=== PATIENT | male | born 1945 | race Caucasian/White ===

== ENCOUNTER 2024-11-27 17:03 | Inpatient (IN) | payer OTHER, MEDICARE ==
[2024-11-27] MEDS: SODIUM CHLORIDE 0.9% 1,000 ML IV ONE ×2 (17:31→18:53)
[2024-11-27 17:32] LABS: Basophils # (A) 0.01 10*3/uL (0.00-0.10); Basophils % (A) 0.1 %; Eosinophils # (A) 0.00 10*3/uL (0.04-0.35); Eosinophils % (A) 0.0 %; HCT 32.9 % (39.6-50.0); HGB 11.3 g/dL (13.0-17.0); Lymphocytes # (A) 0.66 10*3/uL (0.90-5.00); Lymphocytes % (A) 6.1 %; MCH 31.1 pg (27.0-32.0); MCHC 34.3 g/dL (32.0-37.0); MCV 90.6 fL (80.0-97.0); Monocytes # (A) 0.41 10*3/uL (0.20-1.00); Monocytes % (A) 3.8 %; Neutrophils # (A) 9.75 10*3/uL (1.80-7.70); Neutrophils % (A) 89.4 %; Platelet Count 219 10*3/uL (140-440); RBC 3.63 10*6/uL (4.40-5.60); RDW 13.3 % (11.5-14.5); WBC 10.90 10*3/uL (4.50-10.00)
--- NOTE | 2024-11-27 17:32 | ED ---
General Adult HPI - General Chief complaint: Weakness Stated complaint: Weakness Time Seen by Provider: 11/27/24 17:08 Source: patient, EMS, RN notes reviewed, old records reviewed Mode of arrival: EMS Limitations: no limitations - History of Present Illness Initial comments: 79-year-old male presenting with generalized weakness, poor intake. Apparently family had contacted paramedics who transported the patient to the emergency department. He was noted to be in atrial fibrillation without prior history. Patient has not been eating or drinking well and does have a previous history of alcohol use. Patient denies chest pain or abdominal pain. Denies fever. Denies vomiting. - Related Data Allergies Allergy/AdvReac Type Severity Reaction Status Date / Time No Known Allergies Allergy Verified 11/27/24 17:19 Review of Systems ROS Statement: Those systems with pertinent positive or pertinent negative responses have been documented in the HPI. ROS Other: All systems not noted in ROS Statement are negative. Past Medical History Past Medical History: Unable to Obtain History of Any Multi-Drug Resistant Organisms: None Reported Past Surgical History: No Surgical Hx Reported Past Psychological History: No Psychological Hx Reported Smoking Status: Light tobacco smoker Past Alcohol Use History: Occasional Past Drug Use History: None Reported General Exam Limitations: no limitations General appearance: alert, in no apparent distress, cachectic Head exam: Present: atraumatic, normocephalic Eye exam: Present: normal appearance, PERRL ENT exam: Present: mucous membranes dry Neck exam: Present: normal inspection. Absent: tenderness, meningismus Respiratory exam: Present: normal lung sounds bilaterally. Absent: respiratory distress, wheezes Cardiovascular Exam: Present: tachycardia, irregular rhythm GI/Abdominal exam: Present: soft. Absent: distended, tenderness, guarding Extremities exam: Present: normal inspection, normal capillary refill. Absent: calf tenderness Neurological exam: Present: alert, oriented X3, CN II-XII intact Skin exam: Present: warm, dry, intact Course Vital Signs 11/27/24 11/27/24 11/27/24 17:07 17:19 18:49 Temperature 97.6 F Pulse Rate 129 H 109 H Pulse Rate [ 101 H Bilateral Radial] Respiratory 19 20 Rate Blood Pressure 88/54 110/90 O2 Sat by Pulse 98 97 Oximetry Medical Decision Making - Medical Decision Making Was pt. sent in by a medical professional or institution (, PA, OIL WELL FISHING TOOL TECHNICIAN, urgent care, hospital, or skilled nursing...) When possible be specific @ -No Did you speak to anyone other than the patient for history (EMS, parent, family, police, friend...)? What history was obtained from this source @ -No Did you review nursing and triage notes (agree or disagree)? Why? @ -I reviewed and agree with nursing and triage notes Were old charts reviewed (outside hosp., previous admission, EMS record, old EKG, old radiological studies, urgent care reports/EKG's, skilled nursing records)? Report findings @ -No old charts were reviewed Differential Weakness: Hypoglycemia, shock, sepsis, hyponatremia, anemia, infection, GA, ETOH, adverse medicine reaction, overdose, stroke, this is not meant to be an all-inclusive list. EKG interpreted by me (3pts min.). @Atrial fibrillation with a rate of 111, QRS duration 89, QTc [address] segment elevation. X-rays interpreted by me (1pt min.). @ -Chest x-ray negative for acute cardiopulmonary findings CT interpreted by me (1pt min.). @ -None done U/S interpreted by me (1pt. min.). @ -Ultrasound of the kidneys and bladder has been ordered, results pending What testing was considered but not performed or refused? (CT, X-rays, U/S, labs)? Why? @ -None What meds were considered but not given or refused? Why? @ -None Did you discuss the management of the patient with other professionals (professionals i.e. DrKusum, PA, OIL WELL FISHING TOOL TECHNICIAN, lab, RT, psych nurse, neonatal social worker, pulp drier, teacher, transit police officer, therapeutic case manager)? Give summary @ -Dr. Quintero covering for sound physician group will admit, Dr. Diaz covering for nephrology recommending 3 amp of bicarb push followed by a bicarb drip. Was smoking cessation discussed for >3mins.? @ -No Was critical care preformed (if so, how long)? @ -Yes, 35 minutes Were there social determinants of health that impacted care today? How? (Homelessness, low income, unemployed, alcoholism, drug addiction, transportation, low edu. Level, literacy, decrease access to med. care, alf, rehab)? @ -No Was there de-escalation of care discussed even if they declined (Discuss DNR or withdrawal of care, Hospice)? DNR status @ -No What co-morbidities impacted this encounter? (DM, HTN, Smoking, COPD, CAD, Cancer, CVA, ARF, Chemo, Hep., AIDS, mental health diagnosis, sleep apnea, morbid obesity)? @Alcohol abuse Was patient admitted / discharged? Hospital course, mention meds given and route, prescriptions, significant lab abnormalities, going to OR and other pertinent info. @ -[79-year-old male presenting with weakness, poor oral intake over the past 2 weeks, history of alcohol abuse. Patient is cachectic. He is in A-fib with RVR with otherwise normal vitals. He does appear significantly dehydrated. Laboratory testing reveals acute renal failure with a BUN of 267 and a creatinine of 13. His potassium is 5.1. He is acidotic with a nondetectable CO2. I discussed the management with nephrology who recommend 3 bicarb push followed by bicarb drip. Repeat laboratory testing in the morning. Tapia catheter is established in the emergency department. Ultrasound of the kidneys and bladder has been ordered with results pending. Patient has a minimal troponin elevation which I suspect is from renal failure. Undiagnosed new problem with uncertain prognosis? @ -No Drug Therapy requiring intensive monitoring for toxicity (Heparin, Nitro, Insulin, Cardizem)? @ -No Were any procedures done? @ -No Diagnosis/symptom? @Acute renal failure, new onset A-fib] Acute, or Chronic, or Acute on Chronic? @Acute Uncomplicated (without systemic symptoms) or Complicated (systemic symptoms)? @ -Default Side effects of treatment? @ -No Exacerbation, Progression, or Severe Exacerbation? @ -No Poses a threat to life or bodily function? How? (Chest pain, USA, GA, pneumonia, PE, COPD, DKA, ARF, appy, cholecystitis, CVA, Diverticulitis, Homicidal, Suicidal, threat to staff... and all critical care pts) @Yes, renal failure, A-fib, arrhythmia - Lab Data Result diagrams: 11/27/24 17:19 11/27/24 17:19 Lab Results 11/27/24 11/27/24 11/27/24 Range/Units 17:19 17:19 17:19 WBC 10.90 H (4.50-10.00) 10*3/uL RBC 3.63 L (4.40-5.60) 10*6/uL Hgb 11.3 L (13.0-17.0) g/dL Hct 32.9 L (39.6-50.0) % MCV 90.6 (80.0-97.0) fL MCH 31.1 (27.0-32.0) pg MCHC 34.3 (32.0-37.0) g/dL Plt Count 219 (140-440) 10*3/uL MPV 11.6 (9.5-12.2) fL Immature Gran % (Auto) 0.6 % Neutrophils % 89.4 % Lymphocytes % 6.1 % Monocytes % 3.8 % Eosinophils % 0.0 % Basophils % 0.1 % Immature Gran # 0.07 H (0.00-0.04) 10*3/uL Neutrophils # 9.75 H (1.80-7.70) 10*3/uL Lymphocytes # 0.66 L (0.90-5.00) 10*3/uL Monocytes # 0.41 (0.20-1.00) 10*3/uL Eosinophils # 0.00 L (0.04-0.35) 10*3/uL Basophils # 0.01 (0.00-0.10) 10*3/uL PT 11.2 (10.0-12.5) sec INR 1.0 (<1.2) APTT 22.4 (22.0-30.0) sec Sodium 143 (137-145) mmol/L Potassium 5.1 (3.5-5.1) mmol/L Chloride 104 (98-107) mmol/L Carbon Dioxide <5 L* (22-30) mmol/L Anion Gap mmol/L BUN 267 H* (9-20) mg/dL Creatinine 13.25 H* (0.66-1.25) mg/dL Est GFR (CKD-EPI)AfAm 4 (>60 ml/min/1.73 sqM) Est GFR (CKD-EPI)NonAf 3 (>60 ml/min/1.73 sqM) Glucose 210 H (74-99) mg/dL Plasma Lactic Acid Dario (0.7-2.0) mmol/L Calcium 9.1 (8.4-10.2) mg/dL Magnesium 2.6 H (1.6-2.3) mg/dL Total Bilirubin 0.7 (0.2-1.3) mg/dL AST 10 L (17-59) U/L ALT 8 (4-49) U/L Alkaline Phosphatase 64 (38-126) U/L Troponin I (0.000-0.034) ng/mL Total Protein 6.9 (6.3-8.2) g/dL Albumin 4.4 (3.5-5.0) g/dL 11/27/24 11/27/24 Range/Units 17:19 17:19 WBC (4.50-10.00) 10*3/uL RBC (4.40-5.60) 10*6/uL Hgb (13.0-17.0) g/dL Hct (39.6-50.0) % MCV (80.0-97.0) fL MCH (27.0-32.0) pg MCHC (32.0-37.0) g/dL Plt Count (140-440) 10*3/uL MPV (9.5-12.2) fL Immature Gran % (Auto) % Neutrophils % % Lymphocytes % % Monocytes % % Eosinophils % % Basophils % % Immature Gran # (0.00-0.04) 10*3/uL Neutrophils # (1.80-7.70) 10*3/uL Lymphocytes # (0.90-5.00) 10*3/uL Monocytes # (0.20-1.00) 10*3/uL Eosinophils # (0.04-0.35) 10*3/uL Basophils # (0.00-0.10) 10*3/uL PT (10.0-12.5) sec INR (<1.2) APTT (22.0-30.0) sec Sodium (137-145) mmol/L Potassium (3.5-5.1) mmol/L Chloride (98-107) mmol/L Carbon Dioxide (22-30) mmol/L Anion Gap mmol/L BUN (9-20) mg/dL Creatinine (0.66-1.25) mg/dL Est GFR (CKD-EPI)AfAm (>60 ml/min/1.73 sqM) Est GFR (CKD-EPI)NonAf (>60 ml/min/1.73 sqM) Glucose (74-99) mg/dL Plasma Lactic Acid Dario 1.1 (0.7-2.0) mmol/L Calcium (8.4-10.2) mg/dL Magnesium (1.6-2.3) mg/dL Total Bilirubin (0.2-1.3) mg/dL AST (17-59) U/L ALT (4-49) U/L Alkaline Phosphatase (38-126) U/L Troponin I 0.085 H* (0.000-0.034) ng/mL Total Protein (6.3-8.2) g/dL Albumin (3.5-5.0) g/dL Critical Care Time Critical Care Time: Yes Total Critical Care Time: 35 Disposition Clinical Impression: Dehydration, Acute renal failure, A-fib Disposition: ADMITTED IP TO THIS [facility] Condition: Serious Is patient prescribed a controlled substance at d/c from ED?: No Referrals: [facility] [Primary Care Provider] - 1-2 days Time of Disposition: 19:10
[2024-11-27 17:46] LABS: ALT 8 U/L (4-49); AST 10 U/L (17-59); African American GFR (CKD) 4 (>60 ml/min/1.73 sqM); Albumin 4.4 g/dL (3.5-5.0); Alkaline Phosphatase 64 U/L (38-126); Calcium 9.1 mg/dL (8.4-10.2); Chloride 104 mmol/L (98-107); Glucose 210 mg/dL (74-99); Magnesium 2.6 mg/dL (1.6-2.3); Non-African American GFR(CKD) 3 (>60 ml/min/1.73 sqM); Potassium 5.1 mmol/L (3.5-5.1); Sodium 143 mmol/L (137-145); Total Protein 6.9 g/dL (6.3-8.2)
--- NOTE | 2024-11-27 17:48 | XR ---
EXAMINATION TYPE: XR chest 2V DATE OF EXAM: 11/27/2024 5:45 PM COMPARISON: None. CLINICAL INDICATION: Male, 79 years old with history of Weakness: Shortness of breath TECHNIQUE: XR chest 2V views of the chest are obtained. FINDINGS: Scattered senescent parenchymal changes noted. Hyperinflation compatible with COPD. No evidence for infiltrate. No evidence for atelectasis. Heart size is stable. Mediastinal structures are stable and grossly unremarkable. No evidence for hilar prominence. Degenerative changes dorsal spine. IMPRESSION: 1. No evidence for acute pulmonary disease. [facility], , 11/27/2024 5:46 PM
[2024-11-27 17:51] LABS: INR 1.0 (<1.2); Partial Thromboplastin Time 22.4 sec (22.0-30.0); Prothrombin Time 11.2 sec (10.0-12.5)
[2024-11-27 18:24] LABS: Carbon Dioxide <5 mmol/L (22-30)
[2024-11-27 18:26] LABS: Blood Urea Nitrogen 267 mg/dL (9-20)
[2024-11-27] MEDS ORDERED: ACETAMINOPHEN TAB 325 MG TAB PO PRN (19:05)
[2024-11-27] MEDS ORDERED: NALOXONE 0.4 MG/ML 1 ML VIAL IV PRN (19:05)
[2024-11-27 19:15] LABS: Bacteria,Urine Rare /hpf; Bilirubin,Urine Negative (Negative); Blood,Urine Trace (Negative); Color,Urine Yellow; Glucose,Urine (UA) Negative (Negative); Hyaline Casts,Urine 35 /lpf (0-2); Ketones,Urine Trace (Negative); Leukocyte Esterase,Urine Trace (Negative); Mucus,Urine Rare /hpf; Nitrite,Urine Negative (Negative); PH, Urine 5.5 (5.0-8.0); Protein,Urine 2+ (Negative); RBC,Urine 1 /hpf (0-5); Specific Gravity,Urine 1.020 (1.001-1.035); Squamous Epithelial Cell,Urine 10 /hpf (0-4); Urobilinogen,Urine <2.0 mg/dL (<2.0); WBC,Urine 5 /hpf (0-5)
[2024-11-27] MEDS: SODIUM BICARB 8.4% 50 ML SYR (1 MEQ/ML) IV STA (19:28)
[2024-11-27] MEDS: DILTIAZEM 125 MG in DEXTROSE 5% IN WATER 100 ML IV SCH (19:35)
[2024-11-27] MEDS: DILTIAZEM 5 MG/ML 5 ML VIAL IVP STA (19:38)
[2024-11-27] MEDS: DEXTROSE 5% IN WATER 1,000 ML with SODIUM BICARB (1 MEQ/ML) 150 ML IV SCH (19:39)
--- NOTE | 2024-11-27 19:44 | US ---
EXAMINATION TYPE: US kidneys/renal and bladder DATE OF EXAM: 11/27/2024 COMPARISON: NONE CLINICAL INDICATION: Male, 79 years old with history of ARF; ARF TECHNIQUE: Grayscale imaging of the bilateral kidneys and urinary bladder: FINDINGS: EXAM MEASUREMENTS: Right Kidney: 8.5 x 4.3 x 3.9 cm Left Kidney: 9.5 x 4.6 x 3.8 cm Right Kidney: Anechoic area lower pole 1.2 x 1.1 x 1.3 cm. Sweat sign visualized Left Kidney: Sweat sign visualized. Bladder: Cather in place There is no evidence for hydronephrosis at this point in time. No nephrolithiasis is seen. Inferior to right kidney cortical simple cyst. No solid renal masses are identified. Corticomedullary differe ntiation is maintained bilaterally. Decompressed with Tapia catheter in place. IMPRESSION: No hydronephrosis or nephrolithiasis. [facility], , 11/27/2024 7:41 PM
[2024-11-27] MEDS: SODIUM CHLORIDE 0.9% 500 ML 500 ML IV ONE (20:16)
[2024-11-27 20:21] LABS: Glucose,Whole Blood 221 mg/dL (70-110)
[2024-11-27] MEDS: INSULIN LISPRO (HumaLOG) 100 UNIT/ML 10 mL VL SQ SCH (20:49)
--- NOTE | 2024-11-27 21:40 | P.HPIM ---
History of Present Illness H&P Date: 11/27/24 Patient is a 79 y/o M presenting with poor oral intake, generalized weakness, and altered mental status. PMHx is vague d/t patients mentation. Pt brought to ED by paramedics who were contacted by the family. On arrival to the ED he was noted to have AFIB with RVR with no prior history. Pt denies fever, N/V, CP, or abdominal pain. PMHx: Unable to obtain d/t patients mentation Family Hx: Unable to obtain d/t patients mentation HRB: Denies tobacco, stopped drinking "couple months ago" Allergies: None reported Imaging: -ABD/Blatter U/S 11/27 - No hydronephrosis or nephrolithiasis Labs: -CO2 - <5 -BUN 267 -CR 13.25 Vitals: Pulse 115, RR 18, BP 99/48, sat 99% Review of systems: Pertinent positives and negatives as discussed in HPI, a complete review of systems was performed and all other systems are negative. Physical examination: Vital signs reviewed General: non toxic, no distress, appears at stated age, underweight Derm: no unusual rashes/lesions, warm Head: atraumatic, normocephalic, symmetric Eyes: EOMI, anicteric sclera, pupils equal round reactive to light ENT: Nose and ears atraumatic Neck: No cervical lymphadenopathy, trachea midline, supple Mouth: no lip lesion, mucus membranes moist Cardiovascular: irregularly irregular, no murmur, positive dorsalis pedis pulse bilateral, no edema Lungs: CTA bilateral, no rhonchi, no rales, no accessory muscle use Abdominal: soft, nontender to palpation, no guarding Ext: muscle strength 5 out of 5 in all 4 extremities grossly, no gross muscle atrophy Neuro: CN II-XI grossly intact, no gross focal neuro deficits Psych: AOx2 - Thinks it is 1945 Assessment/Plan: Patient is 79 y/o male presenting with Oliguric GRAHAM with possible ATN causing encephalopathy. #Oliguric GRAHAM with possible ATN, likely prerenal d/t BUN/Cr ratio. Meets criteria for emergent dialysis because of severe acidosis and Uremia as indicated by CO2 of 5. Plan: -Nephro consult -Dialysis -Bladder U/S to r/o obstruction. #Acute metabolic encephalopathy 2/2 to uremia and acidosis. Patient indicates no history of bleeding or steroid use but is poor historian Plan: -Should resolve after dialysis normalizes lab values -Aspiration precautions #High AG Metabolic acidosis 2/2 to renal failure as indicated by CO2 of 5. Plan: -Bicarb drip #New onset Afib with RVR, on cardizem drip. Monitor blood pressures, if too low then consider amnio. CHADS VASC score of 2 A-fib likely related to his acute illness Plan: -TSH -TTE -Cardiology consult -Make sure patient gets fluids -[place] Vascor of 2 but will hold off starting anticoagulation for now #Possible UTI d/t abnormal U/A a Plan: -Rocephin ordered - Did not meet sepsis criteria - Pending urine culture #Failure to thrive #Protein Calorie Malnutrition Patient seems very thin and mentally altered. Plan: -Operations Research Manager consult -Case management -Have palliative talk to pt and family in morning -PT Consult -Fall precautions The patient is admitted with an anticipated greater than 2 midnight stay for evaluation of altered mental status, GRAHAM, and new onset afib CODE STATUS: [FULL CODE] Discussed with: Dr Eloy Jacobo Attestation : Patient seen and examined with biomedical engineering technician. Agree with above assessment and plan. This is an 79-year-old male patient . No much of a history was able to be obtained from the patient as patient is altered. Pt brought to ED by paramedics who were contacted by the family. On arrival to the ED he was noted to have AFIB with RVR with no prior history . Labs showing severe kidney injury with severe acidosis. Concern for failure to thrive and severe dehydration . Will definitely need dietitian, case management rn and probably palliative care consult. Nephrology consulted and recommendation for emergent dialysis . Patient will be placed on bicarb drip for now and repeat BMP . Tapia catheter in place to monitor urine output. For the A-fib with RVR, will order echocardiogram , Cardizem drip , TSH and cardiology consult. [place] Vascor of 2 but will defer starting him on anticoagulation for now until dialysis catheter is placed . Time spent : 55 min Past Medical History Past Medical History: Unable to Obtain History of Any Multi-Drug Resistant Organisms: None Reported Past Surgical History: No Surgical Hx Reported Past Psychological History: No Psychological Hx Reported Smoking Status: Light tobacco smoker Past Alcohol Use History: Occasional Past Drug Use History: None Reported Medications and Allergies Home Medications Medication Instructions Recorded Confirmed Type Cholecalciferol (Vitamin D3) 50 mcg PO DAILY 11/27/24 11/27/24 History [Vitamin D3 (50 Mcg = 2000 Iu)] Eucerin Cream 1 applic TOPICAL DAILY 11/27/24 11/27/24 History Folic Acid 1 mg PO DAILY 11/27/24 11/27/24 History Ipratropium/Albuter 20-100Mcg 1 puff INHALATION RT-QID 11/27/24 11/27/24 History [Combivent Respimat 20-100Mcg Inhaler] Latanoprost [Latanoprost 0.005%] 1 drop BOTH EYES HS 11/27/24 11/27/24 History Lisinopril-Hctz 20-25 mg 1 tab PO DAILY 11/27/24 11/27/24 History [Zestoretic 20-25] Loperamide [Imodium] 2 - 4 mg PO QID PRN 11/27/24 11/27/24 History Mometasone Furoate [Asmanex 220 1 puff INHALATION RT-DAILY 11/27/24 11/27/24 History MCG] Naproxen [Naprosyn] 500 mg PO BID 11/27/24 11/27/24 History Thiamine [Vitamin B-1] 100 mg PO DAILY 11/27/24 11/27/24 History amLODIPine [Norvasc] 5 mg PO DAILY 11/27/24 11/27/24 History Allergies Allergy/AdvReac Type Severity Reaction Status Date / Time No Known Allergies Allergy Verified 11/27/24 19:54 Physical Exam Vitals: Vital Signs Temp Pulse Pulse Resp BP Pulse Ox 11/27/24 19:44 115 H 18 99/48 99 11/27/24 19:00 96 16 102/64 97 11/27/24 18:49 109 H 20 110/90 97 11/27/24 17:19 101 H 11/27/24 17:07 97.6 F 129 H 19 88/54 98 Intake and Output 11/27/24 11/27/24 11/27/24 06:59 14:59 22:59 Output Total 13 Balance -13 Output: Urine 13 Other: Weight 70.307 kg Results CBC & Chem 7: 11/27/24 17:19 11/27/24 17:19 Labs: Abnormal Lab Results - Last 24 Hours (Table) 11/27/24 11/27/24 11/27/24 Range/Units 17:19 17:19 17:19 WBC 10.90 H (4.50-10.00) 10*3/uL RBC 3.63 L (4.40-5.60) 10*6/uL Hgb 11.3 L (13.0-17.0) g/dL Hct 32.9 L (39.6-50.0) % Immature Gran # 0.07 H (0.00-0.04) 10*3/uL Neutrophils # 9.75 H (1.80-7.70) 10*3/uL Lymphocytes # 0.66 L (0.90-5.00) 10*3/uL Eosinophils # 0.00 L (0.04-0.35) 10*3/uL Carbon Dioxide <5 L* (22-30) mmol/L BUN 267 H* (9-20) mg/dL Creatinine 13.25 H* (0.66-1.25) mg/dL Glucose 210 H (74-99) mg/dL POC Glucose (mg/dL) (70-110) mg/dL Magnesium 2.6 H (1.6-2.3) mg/dL AST 10 L (17-59) U/L Troponin I 0.085 H* (0.000-0.034) ng/mL Urine Protein (Negative) Urine Ketones (Negative) Urine Blood (Negative) Ur Leukocyte Esterase (Negative) Ur Squamous Epith Cells (0-4) /hpf Urine Bacteria (None) /hpf Hyaline Casts (0-2) /lpf Urine Mucus (None) /hpf 11/27/24 11/27/24 Range/Units 18:55 20:19 WBC (4.50-10.00) 10*3/uL RBC (4.40-5.60) 10*6/uL Hgb (13.0-17.0) g/dL Hct (39.6-50.0) % Immature Gran # (0.00-0.04) 10*3/uL Neutrophils # (1.80-7.70) 10*3/uL Lymphocytes # (0.90-5.00) 10*3/uL Eosinophils # (0.04-0.35) 10*3/uL Carbon Dioxide (22-30) mmol/L BUN (9-20) mg/dL Creatinine (0.66-1.25) mg/dL Glucose (74-99) mg/dL POC Glucose (mg/dL) 221 H (70-110) mg/dL Magnesium (1.6-2.3) mg/dL AST (17-59) U/L Troponin I (0.000-0.034) ng/mL Urine Protein 2+ H (Negative) Urine Ketones Trace H (Negative) Urine Blood Trace H (Negative) Ur Leukocyte Esterase Trace H (Negative) Ur Squamous Epith Cells 10 H (0-4) /hpf Urine Bacteria Rare H (None) /hpf Hyaline Casts 35 H (0-2) /lpf Urine Mucus Rare H (None) /hpf
[2024-11-27 22:00] LABS: T4, Free (Free Thyroxine) 1.62 ng/dL (0.78-2.19)
[2024-11-27 23:34] LABS: Glucose,Whole Blood 213 mg/dL (70-110)
[2024-11-27] MEDS: HEPARIN SODIUM,PORCINE 5,000 UNIT/ML 1 ML VIAL SQ SCH (23:35)
[2024-11-28 00:06] LABS: African American GFR (CKD) 4 (>60 ml/min/1.73 sqM); Anion Gap 32 mmol/L; Calcium 8.1 mg/dL (8.4-10.2); Chloride 105 mmol/L (98-107); Glucose 201 mg/dL (74-99); Non-African American GFR(CKD) 4 (>60 ml/min/1.73 sqM); Potassium 3.6 mmol/L (3.5-5.1); Sodium 146 mmol/L (137-145)
[2024-11-28 00:33] LABS: Carbon Dioxide 9 mmol/L (22-30)
[2024-11-28 01:04] LABS: Blood Urea Nitrogen 249 mg/dL (9-20)
[2024-11-28 06:21] LABS: Glucose,Whole Blood 184 mg/dL (70-110)
[2024-11-28] MEDS ORDERED: HEPARIN SODIUM 1,000 UN/ML (10ML VL) IV PRN (06:55)
[2024-11-28 08:01] LABS: Basophils # (A) 0.01 10*3/uL (0.00-0.10); Basophils % (A) 0.1 %; Eosinophils # (A) 0.01 10*3/uL (0.04-0.35); Eosinophils % (A) 0.1 %; HCT 26.0 % (39.6-50.0); Lymphocytes # (A) 0.51 10*3/uL (0.90-5.00); Lymphocytes % (A) 6.8 %; MCH 31.1 pg (27.0-32.0); MCHC 36.2 g/dL (32.0-37.0); MCV 86.1 fL (80.0-97.0); Monocytes # (A) 0.45 10*3/uL (0.20-1.00); Monocytes % (A) 6.0 %; Neutrophils # (A) 6.48 10*3/uL (1.80-7.70); Neutrophils % (A) 86.6 %; Platelet Count 151 10*3/uL (140-440); RBC 3.02 10*6/uL (4.40-5.60); RDW 12.8 % (11.5-14.5); WBC 7.49 10*3/uL (4.50-10.00)
[2024-11-28 08:08] LABS: INR 1.1 (<1.2); Partial Thromboplastin Time 23.6 sec (22.0-30.0); Prothrombin Time 11.6 sec (10.0-12.5)
[2024-11-28 08:12] LABS: African American GFR (CKD) 5 (>60 ml/min/1.73 sqM); Anion Gap 25 mmol/L; Calcium 7.9 mg/dL (8.4-10.2); Carbon Dioxide 14 mmol/L (22-30); Chloride 107 mmol/L (98-107); Glucose 193 mg/dL (74-99); Magnesium 1.9 mg/dL (1.6-2.3); Non-African American GFR(CKD) 5 (>60 ml/min/1.73 sqM); Sodium 146 mmol/L (137-145)
[2024-11-28 08:14] LABS: HGB 9.4 g/dL (13.0-17.0)
[2024-11-28 08:20] LABS: Blood Urea Nitrogen 227 mg/dL (9-20); Potassium 2.7 mmol/L (3.5-5.1)
[2024-11-28] MEDS: HEPARIN SOD,PORK IN 0.45% NACL 25,000 UNIT in 0.45% NACL 1 250ML.BAG IV SCH (08:41)
[2024-11-28] MEDS: HEPARIN SODIUM 1,000 UN/ML (10ML VL) IV ONE (08:53)
--- NOTE | 2024-11-28 09:32 | CT ---
EXAMINATION TYPE: CT brain wo con DATE OF EXAM: 11/28/2024 7:25 AM COMPARISON: None. CLINICAL INDICATION: Male, 79 years old with history of AMS, ams TECHNIQUE: Brain: Axial CT images of the brain were obtained with coronal and sagittal reformats created and rev iewed. Contrast used: None. Oral contrast used: None. CT DLP: 1093.7 mGycm, Automated exposure control for dose reduction was used. FINDINGS: Brain: Extra-axial spaces: No abnormal extra-axial fluid collections. Ventricular system: Dilatation in proportion to cerebral atrophy. Cerebral parenchyma: No acute intraparenchymal hemorrhage or mass effect. The chaves-white junction is well differentiated. Scattered hypoattenuating areas are seen within the white matter. Cerebellum: Unremarkable. Mass effect: No evidence of midline shift. Intracranial vasculature: Atherosclerotic calcifications of the intracranial vessels. Soft tissues: Normal. Calvarium/osseous structures: No depressed skull fracture. Leftward deviation of the nasal bone with prior injury. Paranasal sinuses and mastoid air cells: Mild scattered paranasal sinus disease. Rightward deviation of the nasal septum. Visualized orbits: Orbital contents are intact. IMPRESSION: 1. No acute intracranial process. 2. Nonspecific white matter changes, likely secondary to chronic small vessel ischemic disease. [facility], , 11/28/2024 9:29 AM
--- NOTE | 2024-11-28 09:34 | P.CRDCN ---
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 He follows with the [facility]. He has a past medical history of hypertension. We have been asked to evaluate the patient for new onset of A-fib with RVR. Patient states that he came into the hospital because he was unable to urinate. He has subsequently had a Tapia catheter placed. He states this problem has been going on for the past few months. Patient states he is not having trouble with eating but has decreased appetite and stopped eating his Meals on Wheels. He denies previous history of kidney problems. He denies any chest pain shortness of breath, palpitations or heart racing. He states that he is a non-smoker. He denies alcohol use. He denies family history of coronary artery disease. He denies any recent bleeding. He denies history of TIA or stroke. He denies history of myocardial infarction. Patient was found to be in A-fib with RVR and started on a Cardizem drip at 5 mg. Heart rate is still uncontrolled in the 130s and remains in atrial fibrillation. Patient is a poor historian. -EKG: Atrial fibrillation with ventricular rate of 111 -Chest x-ray: No acute process. -Ultrasound renal: No hydronephrosis or nephrolithiasis. -Laboratory studies: Initial creatinine 13.2 now 9.4, potassium 2.7, sodium 146, BUN 227. Hemoglobin 9.4. Troponin 0.085. TSH 4.69 and 2.01 with normal free T4. -Home cardiac medications: Amlodipine 5 mg daily, lisinopril hydrochlorothiazide 20-25 mg daily. Review Of Systems: At the time of my exam: CONSTITUTIONAL: Denies fever or chills. HEENT: Denies blurred vision, vision changes, or eye pain. Denies hemoptysis CARDIOVASCULAR: Denies chest pain. Denies orthopnea. Denies PND. Denies pa lpitations RESPIRATORY: Denies shortness of breath. GASTROINTESTINAL: Denies abdominal pain. Denies nausea or vomiting. Decreased appetite. HEMATOLOGIC: Denies bleeding disorders. GENITOURINARY: Denies any blood in urine. SKIN: Denies puritis. Denies rash. Physical examination: Gen: This is 79-year-old male in no acute distress VS: reviewed HEENT: Head is atraumatic, normocephalic. Pupils equal, round. Sclerae is anicteric. NECK: Supple. No JVD. LUNGS: Clear to auscultation. No wheezes or rhonchi. No intercostal retractions. HEART: Regular rate and rhythm. No murmur. ABDOMEN: Soft No tenderness. EXTREMITIES: No pedal edema. No calf tenderness. NEUROLOGICAL: Patient is awake, mental status seems somewhat slow and baseline is not known. Assessment: Acute kidney injury Severe metabolic acidosis secondary to acute kidney injury New onset paroxysmal atrial fibrillation with RVR Elevated troponin most likely secondary to A-fib with RVR and acute kidney injury Hypertension, currently hypotensive Plan: Resume patient's home cardiac medications with the following changes: Hold antihypertensives due to low blood pressure Start patient on heparin drip Continue Cardizem drip Continue telemetry monitoring Obtain CT of the brain prior to starting heparin drip Obtain 2-D echocardiogram and Doppler study to assess cardiac structure and function Further recommendations to follow based upon clinical course Thank you kindly for this consultation. Nurse practitioner note has been reviewed, I agree with documented findings and plan of care. Patient was seen and examined. Past Medical History Past Medical History: Unable to Obtain History of Any Multi-Drug Resistant Organisms: None Reported Past Surgical History: No Surgical Hx Reported Past Psychological History: No Psychological Hx Reported Smoking Status: Light tobacco smoker Past Alcohol Use History: Occasional Past Drug Use History: None Reported Medications and Allergies Home Medications Medication Instructions Recorded Confirmed Type Cholecalciferol (Vitamin D3) 50 mcg PO DAILY 11/27/24 11/27/24 History [Vitamin D3 (50 Mcg = 2000 Iu)] Eucerin Cream 1 applic TOPICAL DAILY 11/27/24 11/27/24 History Folic Acid 1 mg PO DAILY 11/27/24 11/27/24 History Ipratropium/Albuter 20-100Mcg 1 puff INHALATION RT-QID 11/27/24 11/27/24 History [Combivent Respimat 20-100Mcg Inhaler] Latanoprost [Latanoprost 0.005%] 1 drop BOTH EYES HS 11/27/24 11/27/24 History Lisinopril-Hctz 20-25 mg 1 tab PO DAILY 11/27/24 11/27/24 History [Zestoretic -] Loperamide [Imodium] 2 - 4 mg PO QID PRN 11/27/24 11/27/24 History Mometasone Furoate [Asmanex 220 1 puff INHALATION RT-DAILY 11/27/24 11/27/24 History MCG] Naproxen [Naprosyn] 500 mg PO BID 11/27/24 11/27/24 History Thiamine [Vitamin B-1] 100 mg PO DAILY 11/27/24 11/27/24 History amLODIPine [Norvasc] 5 mg PO DAILY 11/27/24 11/27/24 History Allergies Allergy/AdvReac Type Severity Reaction Status Date / Time No Known Allergies Allergy Verified 11/27/24 19:54 Physical Exam Vitals: Vital Signs Temp Pulse Pulse Resp BP Pulse Ox 11/28/24 06:33 137 H 18 119/59 100 11/28/24 03:47 130 H 16 93/71 100 11/28/24 01:54 126 H 16 102/71 98 11/27/24 23:17 123 H 16 103/57 99 11/27/24 22:04 138 H 18 102/61 95 11/27/24 19:44 115 H 18 99/48 99 11/27/24 19:00 96 16 102/64 97 11/27/24 18:49 109 H 20 110/90 97 11/27/24 17:19 101 H 11/27/24 17:07 97.6 F 129 H 19 88/54 98 Intake and Output 11/27/24 11/27/24 11/28/24 14:59 22:59 06:59 Output Total 30 670 Balance -30 -670 Output: Urine 30 670 Other: Weight 70.307 kg Results 11/28/24 07:28 11/28/24 07:28 Cardiac Enzymes 11/27/24 11/27/24 Range/Units 17:19 17:19 AST 10 L (17-59) U/L Troponin I 0.085 H* (0.000-0.034) ng/mL Coagulation 11/27/24 Range/Units 17:19 PT 11.2 (10.0-12.5) sec APTT 22.4 (22.0-30.0) sec CBC 11/27/24 Range/Units 17:19 WBC 10.90 H (4.50-10.00) 10*3/uL RBC 3.63 L (4.40-5.60) 10*6/uL Hgb 11.3 L (13.0-17.0) g/dL Hct 32.9 L (39.6-50.0) % Plt Count 219 (140-440) 10*3/uL Comprehensive Metabolic Panel 11/27/24 11/27/24 Range/Units 17:19 23:26 Sodium 143 146 H (137-145) mmol/L Potassium 5.1 3.6 (3.5-5.1) mmol/L Chloride 104 105 (98-107) mmol/L Carbon Dioxide <5 L* 9 L* (22-30) mmol/L BUN 267 H* 249 H* (9-20) mg/dL Creatinine 13.25 H* 11.85 H* (0.66-1.25) mg/dL Glucose 210 H 201 H (74-99) mg/dL Calcium 9.1 8.1 L (8.4-10.2) mg/dL AST 10 L (17-59) U/L ALT 8 (4-49) U/L Alkaline Phosphatase 64 (38-126) U/L Total Protein 6.9 (6.3-8.2) g/dL Albumin 4.4 (3.5-5.0) g/dL Current Medications Generic Name Dose Route Start Last Admin Trade Name Freq PRN Reason Stop Dose Admin Acetaminophen 650 mg 11/27/24 19:05 Acetaminophen Tab 325 Mg Tab PO Q6HR PRN Mild Pain or Fever > 100.5 Heparin Sodium (Porcine) 5,000 unit 11/27/24 22:45 11/27/24 23:35 Heparin Sodium,Porcine 5,000 Unit/Ml 1 Ml Vial SQ 5,000 unit Q12HR SKYLAR Administration Diltiazem HCl 125 mg/ Dextrose 125 mls @ 5 mls/hr 11/27/24 19:00 11/27/24 19:35 /Water IV 5 mg/hr .Q24H SKYLAR 5 mls/hr Administration Protocol 5 MG/HR Sodium Bicarbonate 150 ml/ 1,150 mls @ 150 mls/hr 11/27/24 19:15 11/28/24 03:47 Dextrose/Water IV 150 mls/hr .Q7H40M SKYLAR Administration Ceftriaxone Sodium 1 gm/ 50 mls @ 100 mls/hr 11/27/24 21:00 11/27/24 20:19 Sodium Chloride IVPB 100 mls/hr Q24H SKYLAR Administration Protocol Insulin Human Lispro 0 unit 11/27/24 20:00 11/28/24 06:34 Insulin Lispro (Humalog) 100 Unit/Ml 10 Ml Vl SQ 1 unit Q6HR SKYLAR Administration Protocol Naloxone HCl 0.2 mg 11/27/24 19:05 Naloxone 0.4 Mg/Ml 1 Ml Vial IV Q2M PRN Opioid Reversal Intake and Output 11/27/24 11/27/24 11/28/24 14:59 22:59 06:59 Output Total 30 670 Balance -30 -670 Output: Urine 30 670 Other: Weight 70.307 kg Patient Weight 11/28/24 06:59 Weight 70.307 kg 11/27/24 17:19 11/27/24 23:26
[2024-11-28] MEDS: POTASSIUM CHLORIDE ER 20 MEQ TAB.ER PO STA (09:42)
--- NOTE | 2024-11-28 09:59 | P.NPCON ---
History of Present Illness - Reason for Consult acute renal failure - History of Present Illness Reason for consultation: Acute kidney injury History of present illness: Patient is a 79-year-old male seen in consultation for acute kidney injury. Unknown baseline renal function. Creatinine on admission was 13.25 and is down to 9.4 today. BUN trending down. Patient came to the hospital due to generali zed weakness and poor intake. He was brought to the hospital by the paramedics. Patient is a poor historian. It is noted the patient was not eating or drinking for the last several days. He does have history of alcohol abuse but unclear as to exactly how much he was drinking. He denies vomiting or diarrhea. Patient was noted to be extremely acidotic with an undetectable bicarb on admission. He is currently maintained on bicarb drip and it is improved to 14 today. Tapia catheter was placed and patient is making urine. He is currently on bicarb drip. Potassium is down to 2.7 which is being replaced. I do not see any naproxen in his home medication list as well as lisinopril and hydr ochlorothiazide but again is unclear as to exactly if he was taking these or not. He was noted to be in A-fib with RVR and is currently maintained on Cardizem drip. Vital signs are stable. General: No acute distress. HEENT: Head exam is unremarkable. LUNGS: No audible rhonchi or wheezes. HEART: Irregular rate and rhythm. ABDOMEN: Nontender. EXTREMITITES: No edema. Past Medical History Past Medical History: Unable to Obtain History of Any Multi-Drug Resistant Organisms: None Reported Past Surgical History: No Surgical Hx Reported Past Psychological History: No Psychological Hx Reported Smoking Status: Light tobacco smoker Past Alcohol Use History: Occasional Past Drug Use History: None Reported Medications and Allergies Home Medications Medication Instructions Recorded Confirmed Type Cholecalciferol (Vitamin D3) 50 mcg PO DAILY 11/27/24 11/27/24 History [Vitamin D3 (50 Mcg = 2000 Iu)] Eucerin Cream 1 applic TOPICAL DAILY 11/27/24 11/27/24 History Folic Acid 1 mg PO DAILY 11/27/24 11/27/24 History Ipratropium/Albuter 20-100Mcg 1 puff INHALATION RT-QID 11/27/24 11/27/24 History [Combivent Respimat 20-100Mcg Inhaler] Latanoprost [Latanoprost 0.005%] 1 drop BOTH EYES HS 11/27/24 11/27/24 History Lisinopril-Hctz 20-25 mg 1 tab PO DAILY 11/27/24 11/27/24 History [Zestoretic 20-25] Loperamide [Imodium] 2 - 4 mg PO QID PRN 11/27/24 11/27/24 History Mometasone Furoate [Asmanex 220 1 puff INHALATION RT-DAILY 11/27/24 11/27/24 History MCG] Naproxen [Naprosyn] 500 mg PO BID 11/27/24 11/27/24 History Thiamine [Vitamin B-1] 100 mg PO DAILY 11/27/24 11/27/24 History amLODIPine [Norvasc] 5 mg PO DAILY 11/27/24 11/27/24 History Allergies Allergy/AdvReac Type Severity Reaction Status Date / Time No Known Allergies Allergy Verified 11/27/24 19:54 Physical Exam Vitals: Vital Signs Temp Pulse Pulse Resp BP Pulse Ox 11/28/24 08:41 125 H 100/57 11/28/24 06:33 137 H 18 119/59 100 11/28/24 03:47 130 H 16 93/71 100 11/28/24 01:54 126 H 16 102/71 98 11/27/24 23:17 123 H 16 103/57 99 11/27/24 22:04 138 H 18 102/61 95 11/27/24 19:44 115 H 18 99/48 99 11/27/24 19:00 96 16 102/64 97 11/27/24 18:49 109 H 20 110/90 97 11/27/24 17:19 101 H 11/27/24 17:07 97.6 F 129 H 19 88/54 98 Intake and Output 11/27/24 11/28/24 11/28/24 22:59 06:59 14:59 Output Total 30 217 340 Balance -96 -850 -041 Output: Urine 30 670 340 Other: Weight 70.307 kg Results - Lab Results Most recent lab results Calcium 7.9 mg/dL (8.4-10.2) L 11/28/24 07:28 Magnesium 1.9 mg/dL (1.6-2.3) 11/28/24 07:28 11/28/24 07:28 11/28/24 07:28 Assessment and Plan Plan: Assessment: 1. Acute kidney injury secondary to ATN secondary to severe hypovolemia further worsened with the use of NSAIDs, ALEXANDREA inhibitor and diuretic use. Unknown baseline renal function. Creatinine 13.2 on admission and is 9.4 today. BUN trending down. 2. Hypokalemia from poor intake and intracellular shifting from IV bicarb. 3. Metabolic acidosis secondary to acute kidney injury. Improving with bicarb drip. 4. Mild hypernatremia from lack of oral water intake. 5. A-fib with RVR maintained on Cardizem drip. 6. History of alcohol abuse. Plan: Maintain bicarb drip. Potassium being replaced. Check ethanol level and volatiles screen. Avoid nephrotoxins. Continue to monitor renal function and urine output. No emergent need for renal replacement therapy at this time. Follow-up echocardiogram. Check CK level. Repeat BMP this afternoon. Thank you for the consultation. I will continue to follow the patient with you during his hospital stay.
[2024-11-28 11:22] LABS: Creatine Kinase 386 U/L (55-170)
[2024-11-28] MEDS: DEXTROSE 5% IN WATER 100 ML with AMIODARONE 150 MG IV ONE (12:08)
[2024-11-28] MEDS: POTASSIUM CHLORIDE ER 10 MEQ TAB.ER.PRT PO STA (12:14)
[2024-11-28 12:35] LABS: Glucose,Whole Blood 292 mg/dL (70-110)
[2024-11-28] MEDS: CALCIUM GLUCONATE IN NACL 1 GM in SALINE 1 100ML.BAG IVPB ONE (12:39)
--- NOTE | 2024-11-28 12:45 | CA ---
Transthoracic Echo Report Name: Mike Sykes Age: 79 Gender: M : 1945 Exam Date: 11/28/2024 10:49 Exam Location: [place] [facility] Ht (in): 73 Wt (lb): 155 Ordering Physician: Eloy Jacobo MD Attending/Referring Phys: Calcine Furnace Tender Lyla Carbajal RDCS Procedure CPT: Indications: afib rvr Cardiac Hx: Technical Quality: Fair Contrast 1: Total Dose (mL): Contrast 2: Total Dose (mL): MEASUREMENTS (Male / Female) Normal Values 2D ECHO LV Diastolic Diameter PLAX 4.0 cm 4.2 - 5.9 / 3.9 - 5.3 cm LV Systolic Diameter PLAX 2.2 cm IVS Diastolic Thickness 1.0 cm 0.6 - 1.0 / 0.6 - 0.9 cm LVPW Diastolic Thickness 1.0 cm 0.6 - 1.0 / 0.6 - 0.9 cm LV Relative Wall Thickness 0.5 RV Internal Dim ED PLAX 2.8 cm LVOT Diameter 2.4 cm LA Systolic Diameter LX 3.5 cm 3.0 - 4.0 / 2.7 - 3.8 cm M-MODE LV Diastolic Diameter MM 3.3 cm 4.2 - 5.9 / 3.9 - 5.3 cm LV Systolic Diameter MM 1.5 cm LV Cardiac Index MM Teich 3023.8 cm???/min???m??? IVS Diastolic Thickness MM 1.0 cm 0.6 - 1.0 / 0.6 - 0.9 cm LVPW Diastolic Thickness MM 0.9 cm 0.6 - 1.0 / 0.6 - 0.9 cm LV Relative Wall Thickness MM 0.6 0.24 - 0.42 / 0.22 - 0.42 LV Mass Index MM 49.8 g/m??? 49 - 115 / 43 - 95 g/m??? Aortic Root Diameter MM 3.6 cm AV Cusp Separation MM 1.3 cm DOPPLER AV Peak Velocity 121.5 cm/s AV Peak Gradient 5.9 mmHg FINDINGS Left Ventricle Left ventricular ejection fraction is estimated at 45 %. Left ventricular cavity size normal. Left ventricular wall thickness normal. No obvious regional wall motion abnormalities. Right Ventricle Normal right ventricular size. Unable to estimate the right ventricular systolic pressure. Right Atrium Right atrium not well visualized. Left Atrium Normal left atrial size. No left atrial thrombus or mass present. Mitral Valve Mitral valve thickened. Mild mitral annular calcification. Mild mitral regurgitation. Aortic Valve Trileaflet aortic valve. Aortic valve sclerosis. Tricuspid Valve Structurally normal tricuspid valve. No tricuspid regurgitation. Pulmonic Valve Pulmonic valve not well visualized. No pulmonic regurgitation. Pericardium No pericardial effusion. Aorta Normal size aortic root and proximal ascending aorta. CONCLUSIONS Tachycardia noted during exam Left ventricular ejection fraction 45% Mild mitral regurgitation No tricuspid regurgitation No pericardial effusion Previewed by: Dr. Rahul Sosa DO (Electronically Signed) Final Date: 28 November 2024 12:45
[2024-11-28] MEDS: AMIODARONE 360 MG in DEXTROSE 5% IN WATER 200 ML IV ONE (12:46)
[2024-11-28] MEDS: IPRATROPIUM-ALBUTEROL 3 ML NEB INHALATION SCH (12:47)
[2024-11-28] MEDS ORDERED: LORazepam 1 MG TAB PO PRN ×2 (13:23)
[2024-11-28] MEDS ORDERED: LORazepam 1 MG/0.5 ML VIAL IV PRN (13:23)
[2024-11-28] MEDS: THIAMINE 100 MG/ML 2 ML VIAL IM STA (13:46)
--- NOTE | 2024-11-28 15:56 | P.PN ---
Subjective Progress Note Date: 11/28/24 Able to ask more questions regarding past medical history today. Denies any current fever or pain but is still somewhat confused. Reports that he fell and lost consciousness recently but could not tell me when. Denies any medical problems but reports that he takes medications for blood pressure. Says that he "couldn't drink water" prior to being brought in by EMS. Objective - Vital Signs Vital signs: Vital Signs Temp 97.6 F 11/28/24 13:48 Pulse 123 H 11/28/24 13:48 Resp 18 11/28/24 13:48 BP 94/60 11/28/24 13:48 Pulse Ox 99 11/28/24 13:48 FiO2 Intake & Output 11/27/24 11/28/24 11/28/24 18:59 06:59 18:59 Output Total 700 660 Balance -700 -660 Weight 70.307 kg Output: Urine 700 660 - Exam Physical examination: Vital signs reviewed General: non toxic, no distress, appears at stated age, underweight Derm: no unusual rashes/lesions, warm Head: atraumatic, normocephalic, symmetric Eyes: EOMI, anicteric sclera, pupils equal round reactive to light ENT: Nose and ears atraumatic Neck: No cervical lymphadenopathy, trachea midline, supple Mouth: no lip lesion, mucus membranes moist Cardiovascular: irregularly irregular, no murmur, positive dorsalis pedis pulse bilateral, no edema Lungs: CTA bilateral, no rhonchi, no rales, no accessory muscle use Abdominal: soft, nontender to palpation, no guarding Ext: muscle strength 5 out of 5 in all 4 extremities grossly, no gross muscle atrophy Neuro: CN II-XI grossly intact, no gross focal neuro deficits Psych: AOx2 - Not oriented to time - Labs CBC & Chem 7: 11/28/24 07:28 11/28/24 07:28 Labs: Abnormal Lab Results - Last 24 Hours (Table) 11/27/24 11/27/24 11/27/24 Range/Units 17:19 17:19 17:19 WBC 10.90 H (4.50-10.00) 10*3/uL RBC 3.63 L (4.40-5.60) 10*6/uL Hgb 11.3 L (13.0-17.0) g/dL Hct 32.9 L (39.6-50.0) % Immature Gran # 0.07 H (0.00-0.04) 10*3/uL Neutrophils # 9.75 H (1.80-7.70) 10*3/uL Lymphocytes # 0.66 L (0.90-5.00) 10*3/uL Eosinophils # 0.00 L (0.04-0.35) 10*3/uL Sodium (137-145) mmol/L Potassium (3.5-5.1) mmol/L Carbon Dioxide <5 L* (22-30) mmol/L BUN 267 H* (9-20) mg/dL Creatinine 13.25 H* (0.66-1.25) mg/dL Glucose 210 H (74-99) mg/dL POC Glucose (mg/dL) (70-110) mg/dL Calcium (8.4-10.2) mg/dL Magnesium 2.6 H (1.6-2.3) mg/dL AST 10 L (17-59) U/L Creatine Kinase (55-170) U/L Troponin I 0.085 H* (0.000-0.034) ng/mL TSH (0.465-4.680) mIU/L Urine Protein (Negative) Urine Ketones (Negative) Urine Blood (Negative) Ur Leukocyte Esterase (Negative) Ur Squamous Epith Cells (0-4) /hpf Urine Bacteria (None) /hpf Hyaline Casts (0-2) /lpf Urine Mucus (None) /hpf 11/27/24 11/27/24 11/27/24 Range/Units 17:19 18:55 20:19 WBC (4.50-10.00) 10*3/uL RBC (4.40-5.60) 10*6/uL Hgb (13.0-17.0) g/dL Hct (39.6-50.0) % Immature Gran # (0.00-0.04) 10*3/uL Neutrophils # (1.80-7.70) 10*3/uL Lymphocytes # (0.90-5.00) 10*3/uL Eosinophils # (0.04-0.35) 10*3/uL Sodium (137-145) mmol/L Potassium (3.5-5.1) mmol/L Carbon Dioxide (22-30) mmol/L BUN (9-20) mg/dL Creatinine (0.66-1.25) mg/dL Glucose (74-99) mg/dL POC Glucose (mg/dL) 221 H (70-110) mg/dL Calcium (8.4-10.2) mg/dL Magnesium (1.6-2.3) mg/dL AST (17-59) U/L Creatine Kinase (55-170) U/L Troponin I (0.000-0.034) ng/mL TSH 4.690 H (0.465-4.680) mIU/L Urine Protein 2+ H (Negative) Urine Ketones Trace H (Negative) Urine Blood Trace H (Negative) Ur Leukocyte Esterase Trace H (Negative) Ur Squamous Epith Cells 10 H (0-4) /hpf Urine Bacteria Rare H (None) /hpf Hyaline Casts 35 H (0-2) /lpf Urine Mucus Rare H (None) /hpf 11/27/24 11/27/24 11/28/24 Range/Units 23:26 23:33 06:20 WBC (4.50-10.00) 10*3/uL RBC (4.40-5.60) 10*6/uL Hgb (13.0-17.0) g/dL Hct (39.6-50.0) % Immature Gran # (0.00-0.04) 10*3/uL Neutrophils # (1.80-7.70) 10*3/uL Lymphocytes # (0.90-5.00) 10*3/uL Eosinophils # (0.04-0.35) 10*3/uL Sodium 146 H (137-145) mmol/L Potassium (3.5-5.1) mmol/L Carbon Dioxide 9 L* (22-30) mmol/L BUN 249 H* (9-20) mg/dL Creatinine 11.85 H* (0.66-1.25) mg/dL Glucose 201 H (74-99) mg/dL POC Glucose (mg/dL) 213 H 184 H (70-110) mg/dL Calcium 8.1 L (8.4-10.2) mg/dL Magnesium (1.6-2.3) mg/dL AST (17-59) U/L Creatine Kinase (55-170) U/L Troponin I (0.000-0.034) ng/mL TSH (0.465-4.680) mIU/L Urine Protein (Negative) Urine Ketones (Negative) Urine Blood (Negative) Ur Leukocyte Esterase (Negative) Ur Squamous Epith Cells (0-4) /hpf Urine Bacteria (None) /hpf Hyaline Casts (0-2) /lpf Urine Mucus (None) /hpf 11/28/24 11/28/24 11/28/24 Range/Units 07:28 07:28 10:17 WBC (4.50-10.00) 10*3/uL RBC 3.02 L (4.40-5.60) 10*6/uL Hgb 9.4 L D (13.0-17.0) g/dL Hct 26.0 L (39.6-50.0) % Immature Gran # (0.00-0.04) 10*3/uL Neutrophils # (1.80-7.70) 10*3/uL Lymphocytes # 0.51 L (0.90-5.00) 10*3/uL Eosinophils # 0.01 L (0.04-0.35) 10*3/uL Sodium 146 H (137-145) mmol/L Potassium 2.7 L* (3.5-5.1) mmol/L Carbon Dioxide 14 L (22-30) mmol/L BUN 227 H* (9-20) mg/dL Creatinine 9.44 H* (0.66-1.25) mg/dL Glucose 193 H (74-99) mg/dL POC Glucose (mg/dL) (70-110) mg/dL Calcium 7.9 L (8.4-10.2) mg/dL Magnesium (1.6-2.3) mg/dL AST (17-59) U/L Creatine Kinase 386 H (55-170) U/L Troponin I (0.000-0.034) ng/mL TSH (0.465-4.680) mIU/L Urine Protein (Negative) Urine Ketones (Negative) Urine Blood (Negative) Ur Leukocyte Esterase (Negative) Ur Squamous Epith Cells (0-4) /hpf Urine Bacteria (None) /hpf Hyaline Casts (0-2) /lpf Urine Mucus (None) /hpf 11/28/24 Range/Units 12:34 WBC (4.50-10.00) 10*3/uL RBC (4.40-5.60) 10*6/uL Hgb (13.0-17.0) g/dL Hct (39.6-50.0) % Immature Gran # (0.00-0.04) 10*3/uL Neutrophils # (1.80-7.70) 10*3/uL Lymphocytes # (0.90-5.00) 10*3/uL Eosinophils # (0.04-0.35) 10*3/uL Sodium (137-145) mmol/L Potassium (3.5-5.1) mmol/L Carbon Dioxide (22-30) mmol/L BUN (9-20) mg/dL Creatinine (0.66-1.25) mg/dL Glucose (74-99) mg/dL POC Glucose (mg/dL) 292 H (70-110) mg/dL Calcium (8.4-10.2) mg/dL Magnesium (1.6-2.3) mg/dL AST (17-59) U/L Creatine Kinase (55-170) U/L Troponin I (0.000-0.034) ng/mL TSH (0.465-4.680) mIU/L Urine Protein (Negative) Urine Ketones (Negative) Urine Blood (Negative) Ur Leukocyte Esterase (Negative) Ur Squamous Epith Cells (0-4) /hpf Urine Bacteria (None) /hpf Hyaline Casts (0-2) /lpf Urine Mucus (None) /hpf Assessment and Plan Assessment: Data reviewed today: -WBC: 7.49, Hgb: 9.4, Na: 146, K: 2.7, Bicarb: 14, Anion gap 25 (32 on arrival), Cr: 9.44, BUN: 227, Ca: 7.9 Patient is 79 y/o male presenting with Oliguric GRAHAM with possible ATN and new onset afib with RVR 1. GRAHAM- likely ATN Uremia Anion gap metabolic acidosis metabolic encephalopathy Hypernatremia Hypokalemia Hypocalcemia Alcohol use disorder at risk for withdrawal -Discussed with nephrology, as long as patient is nonoliguric, will continue to monitor labs and assess the need for dialysis -On bicarb drip 150 cc an hour -Prophylactic Rocephin discontinued -replaced potassium and calcium -Serum alcohol <10 -Placed on CIWA protocol -On renal diet -volatiles screen ordered -UDS ordered -Bladder U/S negative for hydronephrosis or nephrolithiasis -Brain CT negative for hemorrhage 2. New onset Afib with RVR CHADS VASC score of 2 TSH 4.7 on arrival but 2.0 on 11/28/2024 -Cardiology consulted -Echo found LVEF of 45% with no wall motion abnormalities -On amiodarone drip - Continue heparin drip, monitor APTT 3. Failure to thrive -Case management and syruper on board -Will consider PT and/or palliative care consult when patient's acute condition improves Hyperglycemia - Sliding scale insulin, monitor for hypoglycemia Disposition: Pending clinical course I have seen and evaluated the patient today. Discussed with the resident and agree with the residents finding and plan as documented in the resident's note. Changes highlighted in blue font.
[2024-11-28 16:12] LABS: African American GFR (CKD) 6 (>60 ml/min/1.73 sqM); Anion Gap 23 mmol/L; Calcium 8.2 mg/dL (8.4-10.2); Carbon Dioxide 21 mmol/L (22-30); Chloride 100 mmol/L (98-107); Glucose 264 mg/dL (74-99); Non-African American GFR(CKD) 5 (>60 ml/min/1.73 sqM); Sodium 144 mmol/L (137-145)
[2024-11-28 16:32] LABS: Potassium 2.6 mmol/L (3.5-5.1)
[2024-11-28 16:34] LABS: Blood Urea Nitrogen 219 mg/dL (9-20)
[2024-11-28] MEDS: SODIUM CHLORIDE 0.9% 1,000 ML IV SCH (17:25)
[2024-11-28] MEDS: POTASSIUM BICARBONATE/CIT AC 20 MEQ TABLET.EFF PO ONE ×2 (17:42)
[2024-11-28] MEDS ORDERED: POTASSIUM CHLORIDE ER 20 MEQ TAB.ER PO SCH (18:00)
[2024-11-28] MEDS: AMIODARONE 450 MG in DEXTROSE 5% IN WATER 250 ML IV SCH (18:32)
[2024-11-28] MEDS: FLUTICASONE 110 MCG INHALER INHALATION SCH (19:21)
[2024-11-28 22:13] LABS: African American GFR (CKD) 8 (>60 ml/min/1.73 sqM); Anion Gap 18 mmol/L; Calcium 7.9 mg/dL (8.4-10.2); Carbon Dioxide 24 mmol/L (22-30); Chloride 102 mmol/L (98-107); Glucose 183 mg/dL (74-99); Non-African American GFR(CKD) 7 (>60 ml/min/1.73 sqM); Sodium 144 mmol/L (137-145)
[2024-11-28 22:37] LABS: Potassium 2.7 mmol/L (3.5-5.1)
[2024-11-28 23:12] LABS: Blood Urea Nitrogen 210 mg/dL (9-20)
[2024-11-29 01:52] LABS: Basophils # (A) 0.00 10*3/uL (0.00-0.10); Basophils % (A) 0.0 %; Eosinophils # (A) 0.00 10*3/uL (0.04-0.35); Eosinophils % (A) 0.0 %; HCT 25.7 % (39.6-50.0); HGB 9.3 g/dL (13.0-17.0); Lymphocytes # (A) 0.58 10*3/uL (0.90-5.00); Lymphocytes % (A) 8.0 %; MCH 30.9 pg (27.0-32.0); MCHC 36.2 g/dL (32.0-37.0); MCV 85.4 fL (80.0-97.0); Monocytes # (A) 0.45 10*3/uL (0.20-1.00); Monocytes % (A) 6.2 %; Neutrophils # (A) 6.15 10*3/uL (1.80-7.70); Neutrophils % (A) 85.2 %; Platelet Count 136 10*3/uL (140-440); RBC 3.01 10*6/uL (4.40-5.60); RDW 12.8 % (11.5-14.5); WBC 7.22 10*3/uL (4.50-10.00)
[2024-11-29 02:03] LABS: INR 1.3 (<1.2); Prothrombin Time 13.6 sec (10.0-12.5)
[2024-11-29 02:32] LABS: African American GFR (CKD) 8 (>60 ml/min/1.73 sqM); Anion Gap 18 mmol/L; Calcium 7.8 mg/dL (8.4-10.2); Carbon Dioxide 25 mmol/L (22-30); Chloride 103 mmol/L (98-107); Glucose 174 mg/dL (74-99); Non-African American GFR(CKD) 7 (>60 ml/min/1.73 sqM); Sodium 146 mmol/L (137-145)
[2024-11-29 03:26] LABS: Potassium 2.7 mmol/L (3.5-5.1)
[2024-11-29 03:29] LABS: Blood Urea Nitrogen 200 mg/dL (9-20)
[2024-11-29 08:07] LABS: African American GFR (CKD) 11 (>60 ml/min/1.73 sqM); Anion Gap 16 mmol/L; Calcium 7.3 mg/dL (8.4-10.2); Carbon Dioxide 23 mmol/L (22-30); Chloride 108 mmol/L (98-107); Glucose 167 mg/dL (74-99); Magnesium 1.5 mg/dL (1.6-2.3); Non-African American GFR(CKD) 9 (>60 ml/min/1.73 sqM); Sodium 147 mmol/L (137-145)
[2024-11-29] MEDS: POTASSIUM CHLORIDE ER 20 MEQ TAB.ER PO STA (08:24)
[2024-11-29 08:37] LABS: Blood Urea Nitrogen 182 mg/dL (9-20); Potassium 2.7 mmol/L (3.5-5.1)
--- NOTE | 2024-11-29 08:58 | P.PN ---
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 He follows with the [facility]. He has a past medical history of hypertension. We have been asked to evaluate the patient for new onset of A-fib with RVR. Patient states that he came into the hospital because he was unable to urinate. He has subsequently had a Tapia catheter placed. He states this problem has been going on for the past few months. Patient states he is not having trouble with eating but has decreased appetite and stopped eating his Meals on Wheels. He denies previous history of kidney problems. He denies any chest pain shortness of breath, palpitations or heart racing. He states that he is a non-smoker. He denies alcohol use. He denies family history of coronary artery disease. He denies any recent bleeding. He denies history of TIA or stroke. He denies history of myocardial infarction. Patient was found to be in A-fib with RVR and started on a Cardizem drip at 5 mg. Heart rate is still uncontrolled in the 130s and remains in atrial fibrillation. Patient is a poor historian. -EKG: Atrial fibrillation with ventricular rate of 111 -Chest x-ray: No acute process. -Ultrasound renal: No hydronephrosis or nephrolithiasis. -Laboratory studies: Initial creatinine 13.2 now 9.4, potassium 2.7, sodium 146, BUN 227. Hemoglobin 9.4. Troponin 0.085. TSH 4.69 and 2.01 with normal free T4. -Home cardiac medications: Amlodipine 5 mg daily, lisinopril hydrochlorothiazide 20-25 mg daily. 11/29/2024 Patient seen and examined in the emergency center waiting for a bed on the cardiac stepdown unit. Patient denies chest pain or chest pressure he denies palpitations or racing heartbeat sensation. He has been maintained on IV heparin. Yesterday attending started patient on IV amiodarone. Patient is off Cardizem drip. Patient denies any bleeding or blood in the stools. He has been refusing potassium because he does not like the taste for which IV potassium will be ordered. Blood pressure 114/57, heart rate 77, pulse ox 99% on 3 L nasal cannula. Renal function is improving. BUN 182 and creatinine 5.29, hemoglobin 9.3, sodium 147, potassium 2.7. CT of the brain showed no acute process. Echocardiogram reveals EF 45%, tachycardic during exam, mild mitral regurgitation, no tricuspid regurgitation, no pericardial effusion. Patient has been started on the CIWA protocol. Physical examination: Gen: This is 79-year-old male in no acute distress VS: reviewed HEENT: Head is atraumatic, normocephalic. Pupils equal, round. Sclerae is anicteric. NECK: Supple. No JVD. LUNGS: Clear to auscultation. No wheezes or rhonchi. No intercostal retractions. HEART: Regular rate and rhythm. No murmur. ABDOMEN: Soft No tenderness. EXTREMITIES: No pedal edema. No calf tenderness. NEUROLOGICAL: Patient is awake, mental status seems somewhat slow and baseline is not known. Assessment: New onset paroxysmal atrial fibrillation with RVR Elevated troponin most likely secondary to A-fib with RVR and acute kidney injury Cardiomyopathy with EF 45%, unknown if ischemic or nonischemic, possibly related to tachycardia Acute kidney injury Severe metabolic acidosis secondary to acute kidney injury Severe hypokalemia Hypernatremia Anemia without active bleeding Hypertension, currently hypotensive but improving Plan: Continue patient's home cardiac medications with the following changes: Hold antihypertensives due to low blood pressure Continue patient on heparin drip Continue amiodarone drip and transition to oral 400 mg twice daily Continue telemetry monitoring Replace potassium. Patient is agreeable to take IV potassium. Further recommendations to follow based upon clinical course Nurse practitioner note has been reviewed, I agree with documented findings and plan of care. Patient was seen and examined. Objective - Vital Signs Vital signs: Vital Signs Temp 98.0 F 11/28/24 23:00 Pulse 107 H 11/28/24 23:00 Resp 18 11/28/24 23:00 BP 110/66 11/28/24 23:00 Pulse Ox 100 11/28/24 18:00 FiO2 Intake & Output 11/28/24 11/28/24 11/29/24 06:59 18:59 06:59 Intake Total 62.434 57.69 Output Total 700 1160 Balance -700 -1097.566 57.69 Intake: Intake, IV Titration 62.434 57.69 Amount Heparin Sod,Pork in 0.45% 62.434 57.69 NaCl 25,000 unit In 0.45 % NaCl 1 250ml.bag @ 12 UNITS/KG/HR 8.437 mls/hr IV .Q24H [facility] Rx#: [id number] Output: Urine 700 1160 - Labs CBC & Chem 7: 11/29/24 01:38 11/29/24 07:17 Labs: Abnormal Lab Results - Last 24 Hours (Table) 11/28/24 11/28/24 11/28/24 Range/Units 07:28 07:28 10:17 RBC 3.02 L (4.40-5.60) 10*6/uL Hgb 9.4 L D (13.0-17.0) g/dL Hct 26.0 L (39.6-50.0) % Plt Count (140-440) 10*3/uL Lymphocytes # 0.51 L (0.90-5.00) 10*3/uL Eosinophils # 0.01 L (0.04-0.35) 10*3/uL PT (10.0-12.5) sec INR (<1.2) APTT (22.0-30.0) sec Sodium 146 H (137-145) mmol/L Potassium 2.7 L* (3.5-5.1) mmol/L Carbon Dioxide 14 L (22-30) mmol/L BUN 227 H* (9-20) mg/dL Creatinine 9.44 H* (0.66-1.25) mg/dL Glucose 193 H (74-99) mg/dL POC Glucose (mg/dL) (70-110) mg/dL Calcium 7.9 L (8.4-10.2) mg/dL Creatine Kinase 386 H (55-170) U/L 11/28/24 11/28/24 11/28/24 Range/Units 12:34 14:47 14:47 RBC (4.40-5.60) 10*6/uL Hgb (13.0-17.0) g/dL Hct (39.6-50.0) % Plt Count (140-440) 10*3/uL Lymphocytes # (0.90-5.00) 10*3/uL Eosinophils # (0.04-0.35) 10*3/uL PT (10.0-12.5) sec INR (<1.2) APTT 99.4 H (22.0-30.0) sec Sodium (137-145) mmol/L Potassium 2.6 L* (3.5-5.1) mmol/L Carbon Dioxide 21 L (22-30) mmol/L BUN 219 H* (9-20) mg/dL Creatinine 8.38 H* (0.66-1.25) mg/dL Glucose 264 H (74-99) mg/dL POC Glucose (mg/dL) 292 H (70-110) mg/dL Calcium 8.2 L (8.4-10.2) mg/dL Creatine Kinase (55-170) U/L 11/28/24 11/28/24 11/29/24 Range/Units 20:49 23:23 01:38 RBC 3.01 L (4.40-5.60) 10*6/uL Hgb 9.3 L (13.0-17.0) g/dL Hct 25.7 L (39.6-50.0) % Plt Count 136 L (140-440) 10*3/uL Lymphocytes # 0.58 L (0.90-5.00) 10*3/uL Eosinophils # 0.00 L (0.04-0.35) 10*3/uL PT (10.0-12.5) sec INR (<1.2) APTT 67.5 H (22.0-30.0) sec Sodium (137-145) mmol/L Potassium 2.7 L* (3.5-5.1) mmol/L Carbon Dioxide (22-30) mmol/L BUN 210 H* (9-20) mg/dL Creatinine 7.19 H* (0.66-1.25) mg/dL Glucose 183 H (74-99) mg/dL POC Glucose (mg/dL) (70-110) mg/dL Calcium 7.9 L (8.4-10.2) mg/dL Creatine Kinase (55-170) U/L 11/29/24 11/29/24 Range/Units 01:38 01:38 RBC (4.40-5.60) 10*6/uL Hgb (13.0-17.0) g/dL Hct (39.6-50.0) % Plt Count (140-440) 10*3/uL Lymphocytes # (0.90-5.00) 10*3/uL Eosinophils # (0.04-0.35) 10*3/uL PT 13.6 H (10.0-12.5) sec INR 1.3 H (<1.2) APTT (22.0-30.0) sec Sodium 146 H (137-145) mmol/L Potassium 2.7 L* (3.5-5.1) mmol/L Carbon Dioxide (22-30) mmol/L BUN 200 H* (9-20) mg/dL Creatinine 6.51 H (0.66-1.25) mg/dL Glucose 174 H (74-99) mg/dL POC Glucose (mg/dL) (70-110) mg/dL Calcium 7.8 L (8.4-10.2) mg/dL Creatine Kinase (55-170) U/L
[2024-11-29] MEDS: POTASSIUM CHLORIDE 10 MEQ in WATER FOR INJECTION 1 100ML.BAG IVPB SCH ×2 (09:05→17:15)
[2024-11-29] MEDS: THIAMINE 100 MG TAB PO SCH (09:15)
[2024-11-29] MEDS: FOLIC ACID 1 MG TAB PO SCH (09:15)
[2024-11-29] MEDS: AMIODARONE 200 MG TAB PO SCH (09:15)
[2024-11-29] MEDS: MULTIVITAMINS, THERA 1 EACH TAB PO SCH (09:15)
--- NOTE | 2024-11-29 09:51 | P.PN ---
Subjective Patient is seen in follow-up for acute kidney injury. Renal function improving. Refusing oral meds. Nonoliguric. Vital signs are stable. General: No acute distress. HEENT: Head exam is unremarkable. LUNGS: No audible rhonchi or wheezes. HEART: Rate and Rhythm are regular. ABDOMEN: Nontender. EXTREMITITES: No edema. Objective - Vital Signs Vital signs: Vital Signs Temp 98.0 F 11/28/24 23:00 Pulse 77 11/29/24 08:45 Resp 20 11/29/24 08:45 BP 114/57 11/29/24 08:45 Pulse Ox 99 11/29/24 08:45 FiO2 Intake & Output 11/28/24 11/29/24 11/29/24 18:59 06:59 18:59 Intake Total 62.434 57.69 Output Total 1160 Balance -1097.566 57.69 Intake: Intake, IV Titration 62.434 57.69 Amount Heparin Sod,Pork in 0.45% 62.434 57.69 NaCl 25,000 unit In 0.45 % NaCl 1 250ml.bag @ 12 UNITS/KG/HR 8.437 mls/hr IV .Q24H [facility] Rx#: [id number] Output: Urine 1160 - Labs CBC & Chem 7: 11/29/24 01:38 11/29/24 07:17 Labs: Abnormal Lab Results - Last 24 Hours (Table) 11/28/24 11/28/24 11/28/24 Range/Units 10:17 12:34 14:47 RBC (4.40-5.60) 10*6/uL Hgb (13.0-17.0) g/dL Hct (39.6-50.0) % Plt Count (140-440) 10*3/uL Lymphocytes # (0.90-5.00) 10*3/uL Eosinophils # (0.04-0.35) 10*3/uL PT (10.0-12.5) sec INR (<1.2) APTT 99.4 H (22.0-30.0) sec Sodium (137-145) mmol/L Potassium (3.5-5.1) mmol/L Chloride (98-107) mmol/L Carbon Dioxide (22-30) mmol/L BUN (9-20) mg/dL Creatinine (0.66-1.25) mg/dL Glucose (74-99) mg/dL POC Glucose (mg/dL) 292 H (70-110) mg/dL Calcium (8.4-10.2) mg/dL Magnesium (1.6-2.3) mg/dL Creatine Kinase 386 H (55-170) U/L 11/28/24 11/28/24 11/28/24 Range/Units 14:47 20:49 23:23 RBC (4.40-5.60) 10*6/uL Hgb (13.0-17.0) g/dL Hct (39.6-50.0) % Plt Count (140-440) 10*3/uL Lymphocytes # (0.90-5.00) 10*3/uL Eosinophils # (0.04-0.35) 10*3/uL PT (10.0-12.5) sec INR (<1.2) APTT 67.5 H (22.0-30.0) sec Sodium (137-145) mmol/L Potassium 2.6 L* 2.7 L* (3.5-5.1) mmol/L Chloride (98-107) mmol/L Carbon Dioxide 21 L (22-30) mmol/L BUN 219 H* 210 H* (9-20) mg/dL Creatinine 8.38 H* 7.19 H* (0.66-1.25) mg/dL Glucose 264 H 183 H (74-99) mg/dL POC Glucose (mg/dL) (70-110) mg/dL Calcium 8.2 L 7.9 L (8.4-10.2) mg/dL Magnesium (1.6-2.3) mg/dL Creatine Kinase (55-170) U/L 11/29/24 11/29/24 11/29/24 Range/Units 01:38 01:38 01:38 RBC 3.01 L (4.40-5.60) 10*6/uL Hgb 9.3 L (13.0-17.0) g/dL Hct 25.7 L (39.6-50.0) % Plt Count 136 L (140-440) 10*3/uL Lymphocytes # 0.58 L (0.90-5.00) 10*3/uL Eosinophils # 0.00 L (0.04-0.35) 10*3/uL PT 13.6 H (10.0-12.5) sec INR 1.3 H (<1.2) APTT (22.0-30.0) sec Sodium 146 H (137-145) mmol/L Potassium 2.7 L* (3.5-5.1) mmol/L Chloride (98-107) mmol/L Carbon Dioxide (22-30) mmol/L BUN 200 H* (9-20) mg/dL Creatinine 6.51 H (0.66-1.25) mg/dL Glucose 174 H (74-99) mg/dL POC Glucose (mg/dL) (70-110) mg/dL Calcium 7.8 L (8.4-10.2) mg/dL Magnesium (1.6-2.3) mg/dL Creatine Kinase (55-170) U/L 11/29/24 11/29/24 Range/Units 07:17 07:17 RBC (4.40-5.60) 10*6/uL Hgb (13.0-17.0) g/dL Hct (39.6-50.0) % Plt Count (140-440) 10*3/uL Lymphocytes # (0.90-5.00) 10*3/uL Eosinophils # (0.04-0.35) 10*3/uL PT (10.0-12.5) sec INR (<1.2) APTT 56.0 H (22.0-30.0) sec Sodium 147 H (137-145) mmol/L Potassium 2.7 L* (3.5-5.1) mmol/L Chloride 108 H (98-107) mmol/L Carbon Dioxide (22-30) mmol/L BUN 182 H* (9-20) mg/dL Creatinine 5.29 H (0.66-1.25) mg/dL Glucose 167 H (74-99) mg/dL POC Glucose (mg/dL) (70-110) mg/dL Calcium 7.3 L (8.4-10.2) mg/dL Magnesium 1.5 L (1.6-2.3) mg/dL Creatine Kinase (55-170) U/L Microbiology - Last 24 Hours (Table) 11/28/24 01:50 Urine Culture - Final Urine,Catheterized Assessment and Plan Plan: Assessment: 1. Acute kidney injury secondary to ATN secondary to severe hypovolemia further worsened with the use of NSAIDs, ALEXANDREA inhibitor and diuretic use. Unknown baseline renal function. Creatinine 13.2 on admission and is 5.29 today. BUN trending down. No hydronephrosis noted on ultrasound. 2. Hypokalemia from poor intake and intracellular shifting from IV bicarb. 3. Metabolic acidosis secondary to acute kidney injury. Status post bicarb drip. Better. 4. Hypernatremia from lack of oral water intake. 5. A-fib with RVR. On oral meds. 6. History of alcohol abuse. 7. Cardiomyopathy with ejection fraction of 45%. Plan: Change fluids to half-normal saline at 150 cc an hour. Potassium being replaced. Patient refusing oral meds. Replace magnesium as well. Ethanol level negative. Avoid nephrotoxins. Continue to monitor renal function and urine output. No emergent need for renal replacement therapy at this time. Repeat BMP this afternoon.
[2024-11-29] MEDS: SODIUM CHLORIDE 0.45% 1,000 ML IV SCH (11:06)
[2024-11-29] MEDS: MAGNESIUM SULFATE-D5W PMX 1 GM in DEXTROSE/WATER 1 100ML.BAG IVPB SCH (11:16)
[2024-11-29 11:23] LABS: Urine Alcohol Negative (Negative); Urine Barbiturate Negative (Negative)
[2024-11-29] MEDS: INSULIN LISPRO (HumaLOG) 100 UNIT/ML 10 mL VL SQ SCH (12:26)
[2024-11-29 15:05] LABS: African American GFR (CKD) 13 (>60 ml/min/1.73 sqM); Anion Gap 18 mmol/L; Calcium 7.1 mg/dL (8.4-10.2); Carbon Dioxide 21 mmol/L (22-30); Chloride 105 mmol/L (98-107); Glucose 153 mg/dL (74-99); Non-African American GFR(CKD) 11 (>60 ml/min/1.73 sqM); Potassium 3.1 mmol/L (3.5-5.1); Sodium 144 mmol/L (137-145)
--- NOTE | 2024-11-29 15:10 | P.PN ---
Subjective Progress Note Date: 11/29/24 Principal diagnosis: Patient reports doing ok today overall. Mentions some discomfort on his back from lying in bed. No other concerns or questions this morning. Objective - Vital Signs Vital signs: Vital Signs Temp 98.0 F 11/28/24 23:00 Pulse 85 11/29/24 14:37 Resp 20 11/29/24 14:37 BP 110/66 11/29/24 14:37 Pulse Ox 98 11/29/24 14:37 FiO2 Intake & Output 11/28/24 11/29/24 11/29/24 18:59 06:59 18:59 Intake Total 62.434 57.69 Output Total 1160 1000 Balance -1097.566 57.69 -1000 Intake: Intake, IV Titration 62.434 57.69 Amount Heparin Sod,Pork in 0.45% 62.434 57.69 NaCl 25,000 unit In 0.45 % NaCl 1 250ml.bag @ 12 UNITS/KG/HR 8.437 mls/hr IV .Q24H [facility] Rx#: [id number] Output: Urine 1160 1000 - Exam Physical examination: Vital signs reviewed General: non toxic, no distress, appears at stated age Derm: no unusual rashes/lesions, warm Head: atraumatic, normocephalic, symmetric Eyes: EOMI, anicteric sclera, pupils equal round reactive to light ENT: Nose and ears atraumatic Neck: No cervical lymphadenopathy, trachea midline, supple Mouth: no lip lesion, mucus membranes moist Cardiovascular: Regular rate and rhythm. no murmur, positive dorsalis pedis pulse bilateral, no edema Lungs: CTA bilateral, no rhonchi, no rales, no accessory muscle use Abdominal: soft, nontender to palpation, no guarding Ext: muscle strength 5 out of 5 in all 4 extremities grossly, no gross muscle atrophy Neuro: CN II-XI grossly intact, no gross focal neuro deficits - Labs CBC & Chem 7: 11/29/24 01:38 11/29/24 14:13 Labs: Abnormal Lab Results - Last 24 Hours (Table) 11/28/24 11/28/24 11/28/24 Range/Units 14:47 14:47 20:49 RBC (4.40-5.60) 10*6/uL Hgb (13.0-17.0) g/dL Hct (39.6-50.0) % Plt Count (140-440) 10*3/uL Lymphocytes # (0.90-5.00) 10*3/uL Eosinophils # (0.04-0.35) 10*3/uL PT (10.0-12.5) sec INR (<1.2) APTT 99.4 H (22.0-30.0) sec Sodium (137-145) mmol/L Potassium 2.6 L* 2.7 L* (3.5-5.1) mmol/L Chloride (98-107) mmol/L Carbon Dioxide 21 L (22-30) mmol/L BUN 219 H* 210 H* (9-20) mg/dL Creatinine 8.38 H* 7.19 H* (0.66-1.25) mg/dL Glucose 264 H 183 H (74-99) mg/dL Calcium 8.2 L 7.9 L (8.4-10.2) mg/dL Magnesium (1.6-2.3) mg/dL 11/28/24 11/29/24 11/29/24 Range/Units 23:23 01:38 01:38 RBC 3.01 L (4.40-5.60) 10*6/uL Hgb 9.3 L (13.0-17.0) g/dL Hct 25.7 L (39.6-50.0) % Plt Count 136 L (140-440) 10*3/uL Lymphocytes # 0.58 L (0.90-5.00) 10*3/uL Eosinophils # 0.00 L (0.04-0.35) 10*3/uL PT 13.6 H (10.0-12.5) sec INR 1.3 H (<1.2) APTT 67.5 H (22.0-30.0) sec Sodium (137-145) mmol/L Potassium (3.5-5.1) mmol/L Chloride (98-107) mmol/L Carbon Dioxide (22-30) mmol/L BUN (9-20) mg/dL Creatinine (0.66-1.25) mg/dL Glucose (74-99) mg/dL Calcium (8.4-10.2) mg/dL Magnesium (1.6-2.3) mg/dL 0711/29/24 11/29/24 Range/Units 01:38 07:17 07:17 RBC (4.40-5.60) 10*6/uL Hgb (13.0-17.0) g/dL Hct (39.6-50.0) % Plt Count (140-440) 10*3/uL Lymphocytes # (0.90-5.00) 10*3/uL Eosinophils # (0.04-0.35) 10*3/uL PT (10.0-12.5) sec INR (<1.2) APTT 56.0 H (22.0-30.0) sec Sodium 146 H 147 H (137-145) mmol/L Potassium 2.7 L* 2.7 L* (3.5-5.1) mmol/L Chloride 108 H (98-107) mmol/L Carbon Dioxide (22-30) mmol/L BUN 200 H* 182 H* (9-20) mg/dL Creatinine 6.51 H 5.29 H (0.66-1.25) mg/dL Glucose 174 H 167 H (74-99) mg/dL Calcium 7.8 L 7.3 L (8.4-10.2) mg/dL Magnesium 1.5 L (1.6-2.3) mg/dL Microbiology - Last 24 Hours (Table) 11/28/24 01:50 Urine Culture - Final Urine,Catheterized Assessment and Plan Assessment: Data reviewed today: -WBC: 7.22, Hgb: 9.3, Na: 147, K: 2.7, Bicarb: 23, Anion gap 16 (32 on arrival), Cr: 5.29, BUN: 182, Ca: 7.3, Mg 1.5 Patient is 79 y/o male presenting with Oliguric GRAHAM with possible ATN and new onset afib with RVR 1. GRAHAM- likely ATN Uremia Anion gap metabolic acidosis metabolic encephalopathy Hypernatremia Hypokalemia hypomagnesemia Hypocalcemia Alcohol use disorder at risk for withdrawal Bladder U/S negative for hydronephrosis or nephrolithiasis Brain CT negative for hemorrhage -Nephrology following, will continue to monitor labs and assess the need for dialysis -Bicarbonate drip discontinued -On 05/29 NS 150cc/hr -Repleting potassium and magnesium -Holding home antihypertensives per cardiology recs -Serum alcohol <10 -On CIWA protocol -On renal diet -volatiles screen ordered -UDS negative 2. New onset Afib with RVR (resolved) TSH 4.7 on arrival but 2.0 on 11/28/2024 -Cardiology following -On telemetry -Echo found LVEF of 45% with no wall motion abnormalities -Amiodarone drip discontinued. Placed on amiodarone 400 mg PO BID -Continue heparin drip, monitor APTT 3. Type 2 NSTEMI likely due to demand ischemia due to RVR versus secondary to GRAHAM #Troponin 386 on 11/28/2024 #EKG negative for STEMI #No documented hx of CAD -Monitor patient for chest pain/SOB 3. Failure to thrive -Case management and registry nurse on board -Will consider PT and/or palliative care consult when patient's acute condition improves Hyperglycemia - Sliding scale insulin, monitor for hypoglycemia Disposition: Pending clinical course I have seen and evaluated the patient today. Discussed with the resident and agree with the residents finding and plan as documented in the resident's note. Changes highlighted in blue font.
[2024-11-29 15:22] LABS: Blood Urea Nitrogen 168 mg/dL (9-20)
[2024-11-29] MEDS: HEPARIN SOD,PORK IN 0.45% NACL 25,000 UNIT in 0.45% NACL 1 250ML.BAG IV SCH (15:41)
[2024-11-29] MEDS ORDERED: POTASSIUM CHLORIDE 20 MEQ in WATER FOR INJECTION 1 100ML.BAG IVPB ONE (16:30)
[2024-11-29 16:37] LABS: Glucose,Whole Blood 148 mg/dL (70-110)
[2024-11-29 20:28] LABS: Glucose,Whole Blood 137 mg/dL (70-110)
[2024-11-30 01:45] LABS: Basophils # (A) 0.00 10*3/uL (0.00-0.10); Basophils % (A) 0.0 %; Eosinophils # (A) 0.01 10*3/uL (0.04-0.35); Eosinophils % (A) 0.2 %; HCT 25.4 % (39.6-50.0); HGB 8.5 g/dL (13.0-17.0); Lymphocytes # (A) 0.53 10*3/uL (0.90-5.00); Lymphocytes % (A) 9.2 %; MCH 30.7 pg (27.0-32.0); MCHC 33.5 g/dL (32.0-37.0); Monocytes # (A) 0.35 10*3/uL (0.20-1.00); Monocytes % (A) 6.1 %; Neutrophils # (A) 4.83 10*3/uL (1.80-7.70); Neutrophils % (A) 83.6 %; Platelet Count 102 10*3/uL (140-440); RBC 2.77 10*6/uL (4.40-5.60); RDW 13.1 % (11.5-14.5); WBC 5.77 10*3/uL (4.50-10.00)
[2024-11-30 02:17] LABS: MCV 91.7 fL (80.0-97.0)
[2024-11-30 05:48] LABS: Glucose,Whole Blood 111 mg/dL (70-110)
[2024-11-30 08:10] LABS: Basophils # (A) 0.00 10*3/uL (0.00-0.10); Basophils % (A) 0.0 %; Eosinophils # (A) 0.01 10*3/uL (0.04-0.35); Eosinophils % (A) 0.2 %; HCT 23.9 % (39.6-50.0); HGB 8.1 g/dL (13.0-17.0); Lymphocytes # (A) 0.63 10*3/uL (0.90-5.00); Lymphocytes % (A) 11.6 %; MCH 31.2 pg (27.0-32.0); MCHC 33.9 g/dL (32.0-37.0); MCV 91.9 fL (80.0-97.0); Monocytes # (A) 0.37 10*3/uL (0.20-1.00); Monocytes % (A) 6.8 %; Neutrophils # (A) 4.40 10*3/uL (1.80-7.70); Neutrophils % (A) 80.7 %; RBC 2.60 10*6/uL (4.40-5.60); RDW 13.1 % (11.5-14.5); WBC 5.45 10*3/uL (4.50-10.00)
[2024-11-30 08:35] LABS: African American GFR (CKD) 21 (>60 ml/min/1.73 sqM); Anion Gap 12 mmol/L; Calcium 6.8 mg/dL (8.4-10.2); Carbon Dioxide 20 mmol/L (22-30); Chloride 109 mmol/L (98-107); Glucose 106 mg/dL (74-99); Magnesium 1.5 mg/dL (1.6-2.3); Non-African American GFR(CKD) 18 (>60 ml/min/1.73 sqM); Potassium 2.8 mmol/L (3.5-5.1); Sodium 141 mmol/L (137-145)
[2024-11-30 08:53] LABS: Blood Urea Nitrogen 129 mg/dL (9-20)
[2024-11-30] MEDS: APIXABAN 2.5 MG TABLET PO SCH (09:08)
[2024-11-30 09:26] LABS: Platelet Count 91 10*3/uL (140-440)
--- NOTE | 2024-11-30 10:12 | P.PN ---
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 He follows with the [facility]. He has a past medical history of hypertension. We have been asked to evaluate the patient for new onset of A-fib with RVR. Patient states that he came into the hospital because he was unable to urinate. He has subsequently had a Tapia catheter placed. He states this problem has been going on for the past few months. Patient states he is not having trouble with eating but has decreased appetite and stopped eating his Meals on Wheels. He denies previous history of kidney problems. He denies any chest pain shortness of breath, palpitations or heart racing. He states that he is a non-smoker. He denies alcohol use. He denies family history of coronary artery disease. He denies any recent bleeding. He denies history of TIA or stroke. He denies history of myocardial infarction. Patient was found to be in A-fib with RVR and started on a Cardizem drip at 5 mg. Heart rate is still uncontrolled in the 130s and remains in atrial fibrillation. Patient is a poor historian. -EKG: Atrial fibrillation with ventricular rate of 111 -Chest x-ray: No acute process. -Ultrasound renal: No hydronephrosis or nephrolithiasis. -Laboratory studies: Initial creatinine 13.2 now 9.4, potassium 2.7, sodium 146, BUN 227. Hemoglobin 9.4. Troponin 0.085. TSH 4.69 and 2.01 with normal free T4. -Home cardiac medications: Amlodipine 5 mg daily, lisinopril hydrochlorothiazide 20-25 mg daily. 11/29/2024 Patient seen and examined in the emergency center waiting for a bed on the cardiac stepdown unit. Patient denies chest pain or chest pressure he denies palpitations or racing heartbeat sensation. He has been maintained on IV heparin. Yesterday attending started patient on IV amiodarone. Patient is off Cardizem drip. Patient denies any bleeding or blood in the stools. He has been refusing potassium because he does not like the taste for which IV potassium will be ordered. Blood pressure 114/57, heart rate 77, pulse ox 99% on 3 L nasal cannula. Renal function is improving. BUN 182 and creatinine 5.29, hemoglobin 9.3, sodium 147, potassium 2.7. CT of the brain showed no acute process. Echocardiogram reveals EF 45%, tachycardic during exam, mild mitral regurgitation, no tricuspid regurgitation, no pericardial effusion. Patient has been started on the CIWA protocol. 11/30/2024 Patient seen and examined. He is now on the cardiac stepdown unit. He denies any chest pain no shortness of breath. He is not eating very much. He remains in atrial fibrillation with controlled rate. He is not currently on beta-tana due to hypotension. Yesterday we transition IV amiodarone to oral 400 mg twice daily blood pressure now 113/68, heart rate 90, pulse ox 100% on 3 L nasal cannula. Renal function is improving with BUN 129 and creatinine 3.12. Other blood work includes hemoglobin 8.1, CO2 20, potassium 2.8.. Physical examination: Gen: This is 79-year-old male in no acute distress VS: reviewed HEENT: Head is atraumatic, normocephalic. Pupils equal, round. Sclerae is anicteric. NECK: Supple. No JVD. LUNGS: Clear to auscultation. No wheezes or rhonchi. No intercostal retractions. HEART: Regular rate and rhythm. No murmur. ABDOMEN: Soft No tenderness. EXTREMITIES: No pedal edema. No calf tenderness. NEUROLOGICAL: Patient is awake, mental status seems somewhat slow and baseline is not known. Assessment: New onset paroxysmal atrial fibrillation with RVR Elevated troponin most likely type II NSTEMI secondary to A-fib with RVR and acute kidney injury Cardiomyopathy with EF 45%, unknown if ischemic or nonischemic, possibly related to tachycardia Acute kidney injury Severe metabolic acidosis secondary to acute kidney injury Severe hypokalemia Hypernatremia Anemia without active bleeding Hypertension, currently hypotensive but improving Plan: Continue patient on the following cardiac medications: Amiodarone 400 mg twice daily Discontinue heparin drip and start patient on Eliquis 2.5 mg twice daily, dosing low due to acute renal failure Hold antihypertensives due to low blood pressure Patient is not on beta-tana due to hypotension Continue telemetry monitoring Replace potassium. Patient is agreeable to take IV potassium. Patient is refusing oral potassium. Further recommendations to follow based upon clinical course Nurse practitioner note has been reviewed, I agree with documented findings and plan of care. Patient was seen and examined. Objective - Vital Signs Vital signs: Vital Signs Temp 98.1 F 11/29/24 20:00 Pulse 79 11/30/24 04:00 Resp 16 11/30/24 04:00 BP 125/72 11/30/24 04:00 Pulse Ox 100 11/30/24 04:00 FiO2 Intake & Output 11/29/24 11/30/24 11/30/24 18:59 06:59 18:59 Intake Total 0 540 Output Total 1000 1500 Balance -1000 -960 Weight 70.307 kg 52 kg Intake: Oral 0 540 Output: Urine 1000 1500 Other: Voiding Method Indwelling Catheter Indwelling Catheter # Bowel Movements 2 2 - Labs CBC & Chem 7: 11/30/24 07:36 11/30/24 07:36 Labs: Abnormal Lab Results - Last 24 Hours (Table) 11/29/24 11/29/24 11/29/24 Range/Units 07:17 14:13 16:34 RBC (4.40-5.60) 10*6/uL Hgb (13.0-17.0) g/dL Hct (39.6-50.0) % Plt Count (140-440) 10*3/uL Immature Gran # (0.00-0.04) 10*3/uL Lymphocytes # (0.90-5.00) 10*3/uL Eosinophils # (0.04-0.35) 10*3/uL Sodium 147 H (137-145) mmol/L Potassium 2.7 L* 3.1 L (3.5-5.1) mmol/L Chloride 108 H (98-107) mmol/L Carbon Dioxide 21 L (22-30) mmol/L BUN 182 H* 168 H* (9-20) mg/dL Creatinine 5.29 H 4.69 H (0.66-1.25) mg/dL Glucose 167 H 153 H (74-99) mg/dL POC Glucose (mg/dL) 148 H (70-110) mg/dL Calcium 7.3 L 7.1 L (8.4-10.2) mg/dL Magnesium 1.5 L (1.6-2.3) mg/dL 11/29/24 11/30/24 11/30/24 Range/Units 20:24 00:59 05:46 RBC 2.77 L (4.40-5.60) 10*6/uL Hgb 8.5 L (13.0-17.0) g/dL Hct 25.4 L (39.6-50.0) % Plt Count 102 L (140-440) 10*3/uL Immature Gran # 0.05 H (0.00-0.04) 10*3/uL Lymphocytes # 0.53 L (0.90-5.00) 10*3/uL Eosinophils # 0.01 L (0.04-0.35) 10*3/uL Sodium (137-145) mmol/L Potassium (3.5-5.1) mmol/L Chloride (98-107) mmol/L Carbon Dioxide (22-30) mmol/L BUN (9-20) mg/dL Creatinine (0.66-1.25) mg/dL Glucose (74-99) mg/dL POC Glucose (mg/dL) 137 H 111 H (70-110) mg/dL Calcium (8.4-10.2) mg/dL Magnesium (1.6-2.3) mg/dL Microbiology - Last 24 Hours (Table) 11/28/24 01:50 Urine Culture - Final Urine,Catheterized
--- NOTE | 2024-11-30 10:23 | P.PN ---
Subjective Patient is seen in follow-up for acute kidney injury. Renal function improving. Nonoliguric. Oral intake just fair. Vital signs are stable. General: No acute distress. HEENT: Head exam is unremarkable. LUNGS: No audible rhonchi or wheezes. HEART: Rate and Rhythm are regular. ABDOMEN: Nontender. EXTREMITITES: No edema. Objective - Vital Signs Vital signs: Vital Signs Temp 98.4 F 11/30/24 08:00 Pulse 90 11/30/24 08:00 Resp 18 11/30/24 08:00 BP 113/68 11/30/24 08:00 Pulse Ox 100 11/30/24 08:00 FiO2 Intake & Output 11/29/24 11/30/24 11/30/24 18:59 06:59 18:59 Intake Total 0 540 40.598 Output Total 1000 1500 Balance -1000 -960 40.598 Weight 70.307 kg 52 kg Intake: Intake, IV Titration 40.598 Amount Heparin Sod,Pork in 0.45% 40.598 NaCl 25,000 unit In 0.45 % NaCl 1 250ml.bag @ 12 UNITS/KG/HR 8.437 mls/hr IV .Q24H [facility] Rx#: [id number] Oral 0 540 Output: Urine 1000 1500 Other: Voiding Method Indwelling Catheter Indwelling Catheter # Bowel Movements 2 2 - Labs CBC & Chem 7: 11/30/24 07:36 11/30/24 07:36 Labs: Abnormal Lab Results - Last 24 Hours (Table) 11/29/24 11/29/24 11/29/24 Range/Units 14:13 16:34 20:24 RBC (4.40-5.60) 10*6/uL Hgb (13.0-17.0) g/dL Hct (39.6-50.0) % Plt Count (140-440) 10*3/uL Immature Gran # (0.00-0.04) 10*3/uL Lymphocytes # (0.90-5.00) 10*3/uL Eosinophils # (0.04-0.35) 10*3/uL APTT (22.0-30.0) sec Potassium 3.1 L (3.5-5.1) mmol/L Chloride (98-107) mmol/L Carbon Dioxide 21 L (22-30) mmol/L BUN 168 H* (9-20) mg/dL Creatinine 4.69 H (0.66-1.25) mg/dL Glucose 153 H (74-99) mg/dL POC Glucose (mg/dL) 148 H 137 H (70-110) mg/dL Calcium 7.1 L (8.4-10.2) mg/dL Magnesium (1.6-2.3) mg/dL 11/30/24 11/30/24 11/30/24 Range/Units 00:59 05:46 07:36 RBC 2.77 L (4.40-5.60) 10*6/uL Hgb 8.5 L (13.0-17.0) g/dL Hct 25.4 L (39.6-50.0) % Plt Count 102 L (140-440) 10*3/uL Immature Gran # 0.05 H (0.00-0.04) 10*3/uL Lymphocytes # 0.53 L (0.90-5.00) 10*3/uL Eosinophils # 0.01 L (0.04-0.35) 10*3/uL APTT 37.7 H (22.0-30.0) sec Potassium (3.5-5.1) mmol/L Chloride (98-107) mmol/L Carbon Dioxide (22-30) mmol/L BUN (9-20) mg/dL Creatinine (0.66-1.25) mg/dL Glucose (74-99) mg/dL POC Glucose (mg/dL) 111 H (70-110) mg/dL Calcium (8.4-10.2) mg/dL Magnesium (1.6-2.3) mg/dL 11/30/24 11/30/24 Range/Units 07:36 07:36 RBC 2.60 L (4.40-5.60) 10*6/uL Hgb 8.1 L (13.0-17.0) g/dL Hct 23.9 L (39.6-50.0) % Plt Count (140-440) 10*3/uL Immature Gran # (0.00-0.04) 10*3/uL Lymphocytes # (0.90-5.00) 10*3/uL Eosinophils # (0.04-0.35) 10*3/uL APTT (22.0-30.0) sec Potassium 2.8 L (3.5-5.1) mmol/L Chloride 109 H (98-107) mmol/L Carbon Dioxide 20 L (22-30) mmol/L BUN 129 H* (9-20) mg/dL Creatinine 3.12 H (0.66-1.25) mg/dL Glucose 106 H (74-99) mg/dL POC Glucose (mg/dL) (70-110) mg/dL Calcium 6.8 L (8.4-10.2) mg/dL Magnesium 1.5 L (1.6-2.3) mg/dL Microbiology - Last 24 Hours (Table) 11/28/24 01:50 Urine Culture - Final Urine,Catheterized Assessment and Plan Plan: Assessment: 1. Acute kidney injury secondary to ATN secondary to severe hypovolemia further worsened with the use of NSAIDs, ALEXANDREA inhibitor and diuretic use. Unknown baseline renal function. Creatinine 13.2 on admission and is 3.12 today. BUN trending down. Nonoliguric. No hydronephrosis noted on ultrasound. 2. Hypokalemia from poor intake and intracellular shifting from IV bicarb. 3. Metabolic acidosis secondary to acute kidney injury. Status post bicarb drip. 4. Hypernatremia from lack of oral water intake. Better. 5. A-fib with RVR. On oral meds. 6. History of alcohol abuse. 7. Cardiomyopathy with ejection fraction of 45%. Plan: Maintain half-normal saline. Replace potassium and magnesium. Avoid nephrotoxins. Continue to monitor renal function and urine output.
[2024-11-30 11:17] LABS: Glucose,Whole Blood 101 mg/dL (70-110)
[2024-11-30] MEDS: POTASSIUM CHLORIDE 10 MEQ in WATER FOR INJECTION 1 100ML.BAG IVPB SCH (11:23)
[2024-11-30] MEDS: MAGNESIUM SULFATE-D5W PMX 1 GM in DEXTROSE/WATER 1 100ML.BAG IVPB SCH (11:24)
--- NOTE | 2024-11-30 11:52 | P.PN ---
Subjective Progress Note Date: 11/30/24 Subjective: Patient seen and examined at bedside. No acute events overnight. Been getting out of the bed. Tapia catheter in place. Pertinent positives and negatives as discussed above, a complete review of systems was performed and all other systems are negative. Vitals Signs Reviewed. General: Nontoxic, no distress, chronically ill-appearing, cachectic, Tapia catheter in place Derm: Warm, dry Head: Atraumatic, normocephalic, symmetric Eyes: EOMI, no lid lag, anicteric sclera Mouth: No lip lesion, mucus membranes moist Cardiovascular: S1S2 reg, no murmur Lungs: CTA bilateral, no rhonchi, no rales, no accessory muscle use Abdominal: Soft, nontender to palpation, no guarding, no appreciable organomegaly Ext: No gross muscle atrophy, no edema, no contractures Neuro: CN II-XI grossly intact, no focal neuro deficits Psych: Alert, oriented, appropriate affect Data Reviewed Today: Pertinent Labs: WBC 5.45, hemoglobin 8.1, platelet 91, sodium 141, potassium 2.8, bicarb 20, creatinine 3.12, BUN 129, magnesium 1.5 Imaging: No new imaging Assessment and Plan: Active: Nonoliguric GRAHAM, ATN secondary to hypovolemia and medication use Hypokalemia Hypomagnesemia Metabolic acidosis - Nephrology note reviewed, continue half-normal saline at 150 cc an hour - Another 60 mill equivalents of IV potassium given today, 2 g of IV magnesium sulfate given today - Continue to monitor renal function - Tapia catheter in place for now, will consider discontinuing when patient is more ambulatory New onset paroxysmal atrial fibrillation Type II NSTEMI Cardiomyopathy, unknown if ischemic or nonischemic - Cardiology note reviewed, continue amiodarone 400 twice daily - Started on Eliquis 2.5 twice daily today Normocytic anemia Thrombocytopenia - Likely in the setting of acute illness as well as renal failure - Continue to monitor for any bleeding - Repeat CBC tomorrow Alcohol dependence - Continue to monitor for withdrawal, p.o. Ativan per CIWA - Continue thiamine 100 mg daily Failure to thrive - On oral supplements - Dietitian following - PT consulted Chronic: COPD/asthma, not in exacerbation History of hypertension, holding antihypertensives DVT ppx: Eliquis Code status: Full code Anticipated discharge place: Pending clinical course Anticipated discharge time: Pending clinical course Objective - Vital Signs Vital signs: Vital Signs Temp 98.4 F 11/30/24 08:00 Pulse 90 11/30/24 08:00 Resp 18 11/30/24 08:00 BP 113/68 11/30/24 08:00 Pulse Ox 100 11/30/24 08:00 FiO2 Intake & Output 11/29/24 11/30/24 11/30/24 18:59 06:59 18:59 Intake Total 0 540 40.598 Output Total 1000 1500 Balance -1000 -960 40.598 Weight 70.307 kg 52 kg Intake: Intake, IV Titration 40.598 Amount Heparin Sod,Pork in 0.45% 40.598 NaCl 25,000 unit In 0.45 % NaCl 1 250ml.bag @ 12 UNITS/KG/HR 8.437 mls/hr IV .Q24H [facility] Rx#: [id number] Oral 0 540 Output: Urine 1000 1500 Other: Voiding Method Indwelling Catheter Indwelling Catheter Indwelling Catheter # Bowel Movements 2 2 - Labs CBC & Chem 7: 11/30/24 07:36 11/30/24 07:36 Labs: Abnormal Lab Results - Last 24 Hours (Table) 11/29/24 11/29/24 11/29/24 Range/Units 14:13 16:34 20:24 RBC (4.40-5.60) 10*6/uL Hgb (13.0-17.0) g/dL Hct (39.6-50.0) % Plt Count (140-440) 10*3/uL Immature Gran # (0.00-0.04) 10*3/uL Lymphocytes # (0.90-5.00) 10*3/uL Eosinophils # (0.04-0.35) 10*3/uL APTT (22.0-30.0) sec Potassium 3.1 L (3.5-5.1) mmol/L Chloride (98-107) mmol/L Carbon Dioxide 21 L (22-30) mmol/L BUN 168 H* (9-20) mg/dL Creatinine 4.69 H (0.66-1.25) mg/dL Glucose 153 H (74-99) mg/dL POC Glucose (mg/dL) 148 H 137 H (70-110) mg/dL Calcium 7.1 L (8.4-10.2) mg/dL Magnesium (1.6-2.3) mg/dL 11/30/24 11/30/24 11/30/24 Range/Units 00:59 05:46 07:36 RBC 2.77 L (4.40-5.60) 10*6/uL Hgb 8.5 L (13.0-17.0) g/dL Hct 25.4 L (39.6-50.0) % Plt Count 102 L (140-440) 10*3/uL Immature Gran # 0.05 H (0.00-0.04) 10*3/uL Lymphocytes # 0.53 L (0.90-5.00) 10*3/uL Eosinophils # 0.01 L (0.04-0.35) 10*3/uL APTT 37.7 H (22.0-30.0) sec Potassium (3.5-5.1) mmol/L Chloride (98-107) mmol/L Carbon Dioxide (22-30) mmol/L BUN (9-20) mg/dL Creatinine (0.66-1.25) mg/dL Glucose (74-99) mg/dL POC Glucose (mg/dL) 111 H (70-110) mg/dL Calcium (8.4-10.2) mg/dL Magnesium (1.6-2.3) mg/dL 11/30/24 11/30/24 Range/Units 07:36 07:36 RBC 2.60 L (4.40-5.60) 10*6/uL Hgb 8.1 L (13.0-17.0) g/dL Hct 23.9 L (39.6-50.0) % Plt Count 91 L (140-440) 10*3/uL Immature Gran # (0.00-0.04) 10*3/uL Lymphocytes # 0.63 L (0.90-5.00) 10*3/uL Eosinophils # 0.01 L (0.04-0.35) 10*3/uL APTT (22.0-30.0) sec Potassium 2.8 L (3.5-5.1) mmol/L Chloride 109 H (98-107) mmol/L Carbon Dioxide 20 L (22-30) mmol/L BUN 129 H* (9-20) mg/dL Creatinine 3.12 H (0.66-1.25) mg/dL Glucose 106 H (74-99) mg/dL POC Glucose (mg/dL) (70-110) mg/dL Calcium 6.8 L (8.4-10.2) mg/dL Magnesium 1.5 L (1.6-2.3) mg/dL Microbiology - Last 24 Hours (Table) 11/28/24 01:50 Urine Culture - Final Urine,Catheterized
[2024-11-30 16:22] LABS: Glucose,Whole Blood 126 mg/dL (70-110)
[2024-11-30 20:31] LABS: Glucose,Whole Blood 106 mg/dL (70-110)
[2024-12-01 06:14] LABS: Glucose,Whole Blood 89 mg/dL (70-110)
[2024-12-01 07:28] LABS: Basophils # (A) 0.01 10*3/uL (0.00-0.10); Basophils % (A) 0.2 %; Eosinophils # (A) 0.03 10*3/uL (0.04-0.35); Eosinophils % (A) 0.6 %; HCT 22.9 % (39.6-50.0); HGB 7.6 g/dL (13.0-17.0); Lymphocytes # (A) 0.55 10*3/uL (0.90-5.00); Lymphocytes % (A) 11.1 %; MCH 31.0 pg (27.0-32.0); MCHC 33.2 g/dL (32.0-37.0); MCV 93.5 fL (80.0-97.0); Monocytes # (A) 0.37 10*3/uL (0.20-1.00); Monocytes % (A) 7.5 %; Neutrophils # (A) 3.90 10*3/uL (1.80-7.70); Neutrophils % (A) 78.8 %; RBC 2.45 10*6/uL (4.40-5.60); RDW 12.9 % (11.5-14.5); WBC 4.95 10*3/uL (4.50-10.00)
[2024-12-01 07:52] LABS: Platelet Count 87 10*3/uL (140-440)
[2024-12-01 07:55] LABS: African American GFR (CKD) 30 (>60 ml/min/1.73 sqM); Anion Gap 11 mmol/L; Blood Urea Nitrogen 91 mg/dL (9-20); Calcium 7.0 mg/dL (8.4-10.2); Carbon Dioxide 19 mmol/L (22-30); Chloride 109 mmol/L (98-107); Glucose 87 mg/dL (74-99); Magnesium 1.6 mg/dL (1.6-2.3); Non-African American GFR(CKD) 26 (>60 ml/min/1.73 sqM); Sodium 139 mmol/L (137-145)
[2024-12-01 08:16] LABS: Potassium 2.7 mmol/L (3.5-5.1)
[2024-12-01] MEDS: MAGNESIUM SULFATE-D5W PMX 1 GM in DEXTROSE/WATER 1 100ML.BAG IVPB SCH (08:57)
[2024-12-01] MEDS: POTASSIUM CHLORIDE 10 MEQ in WATER FOR INJECTION 1 100ML.BAG IVPB SCH (08:58)
[2024-12-01] MEDS ORDERED: IPRATROPIUM-ALBUTEROL 3 ML NEB INHALATION PRN (09:02)
--- NOTE | 2024-12-01 11:14 | P.PN ---
Subjective Patient is seen for follow-up for acute kidney injury. Renal function continues to improve. Serum creatinine down to 2.2 from 13.2 on initial admission. Currently maintained on IV fluids. Patient has an indwelling Tapia catheter with 24-hour urine output at 2000 mL. Objective - Vital Signs Vital signs: Vital Signs Temp 98.5 F 11/30/24 20:19 Pulse 68 12/01/24 04:08 Resp 17 12/01/24 04:08 BP 108/59 12/01/24 04:08 Pulse Ox 97 12/01/24 09:01 FiO2 Intake & Output 11/30/24 12/01/24 12/01/24 18:59 06:59 18:59 Intake Total 340.598 118 Output Total 1300 700 Balance -959.402 -700 118 Intake: Intake, IV Titration 40.598 Amount Heparin Sod,Pork in 0.45% 40.598 NaCl 25,000 unit In 0.45 % NaCl 1 250ml.bag @ 12 UNITS/KG/HR 8.437 mls/hr IV .Q24H [facility] Rx#: [id number] Oral 300 118 Output: Urine 1300 700 Other: Voiding Method Indwelling Catheter Indwelling Catheter # Bowel Movements 3 1 - Exam Patient is awake, comfortable, no acute distress Examination of the heart S1 and S2 Examination of the lungs bilateral breath sounds are heard Abdomen is soft nontender Examination lower extremity shows no significant edema [employer] exam grossly intact - Labs CBC & Chem 7: 12/01/24 06:44 12/01/24 06:44 Labs: Abnormal Lab Results - Last 24 Hours (Table) 11/30/24 12/01/24 12/01/24 Range/Units 16:20 06:44 06:44 RBC 2.45 L (4.40-5.60) 10*6/uL Hgb 7.6 L (13.0-17.0) g/dL Hct 22.9 L (39.6-50.0) % Plt Count 87 L (140-440) 10*3/uL Immature Gran # 0.09 H (0.00-0.04) 10*3/uL Lymphocytes # 0.55 L (0.90-5.00) 10*3/uL Eosinophils # 0.03 L (0.04-0.35) 10*3/uL Potassium 2.7 L* (3.5-5.1) mmol/L Chloride 109 H (98-107) mmol/L Carbon Dioxide 19 L (22-30) mmol/L BUN 91 H (9-20) mg/dL Creatinine 2.28 H (0.66-1.25) mg/dL POC Glucose (mg/dL) 126 H (70-110) mg/dL Calcium 7.0 L (8.4-10.2) mg/dL Assessment and Plan Assessment: 1. Acute kidney injury secondary to ATN secondary to severe hypovolemia further worsened with the use of NSAIDs, ALEXANDREA inhibitor and diuretic use. Unknown baseline renal function. Creatinine 13.2 on admission and is 2.2 today. BUN trending down. Nonoliguric. No hydronephrosis noted on ultrasound. 2. Hypokalemia from poor intake and intracellular shifting from IV bicarb. 3. Metabolic acidosis secondary to acute kidney injury. Status post bicarb drip. 4. Hypernatremia from lack of oral water intake. Better. 5. A-fib with RVR. On oral meds. 6. History of alcohol abuse. 7. Cardiomyopathy with ejection fraction of 45%. Plan: Decrease IV fluids Continue to encourage increased oral intake Repeat labs in a.m. Continue to avoid nephrotoxic agents.
--- NOTE | 2024-12-01 11:26 | P.PN ---
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 He follows with the [facility]. He has a past medical history of hypertension. We have been asked to evaluate the patient for new onset of A-fib with RVR. Patient states that he came into the hospital because he was unable to urinate. He has subsequently had a Tapia catheter placed. He states this problem has been going on for the past few months. Patient states he is not having trouble with eating but has decreased appetite and stopped eating his Meals on Wheels. He denies previous history of kidney problems. He denies any chest pain shortness of breath, palpitations or heart racing. He states that he is a non-smoker. He denies alcohol use. He denies family history of coronary artery disease. He denies any recent bleeding. He denies history of TIA or stroke. He denies history of myocardial infarction. Patient was found to be in A-fib with RVR and started on a Cardizem drip at 5 mg. Heart rate is still uncontrolled in the 130s and remains in atrial fibrillation. Patient is a poor historian. -EKG: Atrial fibrillation with ventricular rate of 111 -Chest x-ray: No acute process. -Ultrasound renal: No hydronephrosis or nephrolithiasis. -Laboratory studies: Initial creatinine 13.2 now 9.4, potassium 2.7, sodium 146, BUN 227. Hemoglobin 9.4. Troponin 0.085. TSH 4.69 and 2.01 with normal free T4. -Home cardiac medications: Amlodipine 5 mg daily, lisinopril hydrochlorothiazide 20-25 mg daily. 11/29/2024 Patient seen and examined in the emergency center waiting for a bed on the cardiac stepdown unit. Patient denies chest pain or chest pressure he denies palpitations or racing heartbeat sensation. He has been maintained on IV heparin. Yesterday attending started patient on IV amiodarone. Patient is off Cardizem drip. Patient denies any bleeding or blood in the stools. He has been refusing potassium because he does not like the taste for which IV potassium will be ordered. Blood pressure 114/57, heart rate 77, pulse ox 99% on 3 L nasal cannula. Renal function is improving. BUN 182 and creatinine 5.29, hemoglobin 9.3, sodium 147, potassium 2.7. CT of the brain showed no acute process. Echocardiogram reveals EF 45%, tachycardic during exam, mild mitral regurgitation, no tricuspid regurgitation, no pericardial effusion. Patient has been started on the CIWA protocol. 11/30/2024 Patient seen and examined. He is now on the cardiac stepdown unit. He denies any chest pain no shortness of breath. He is not eating very much. He remains in atrial fibrillation with controlled rate. He is not currently on beta- tana due to hypotension. Yesterday we transition IV amiodarone to oral 400 mg twice daily blood pressure now 113/68, heart rate 90, pulse ox 100% on 3 L nasal cannula. Renal function is improving with BUN 129 and creatinine 3.12. Other blood work includes hemoglobin 8.1, CO2 20, potassium 2.8.. 12/01/2024 Seen and examined at bedside this a.m. Saturating well on room air blood pressure 110/63, heart rate 84 sinus rhythm on telemetry. Appears that he converted to sinus rhythm on 11/30/2024. His potassium is 2.7 and magnesium was 1 .6 today. He is having diarrhea with bowel movements. Hemoglobin has consistently dropped since the time of admission on admission it was 11 today at 7.6. No active source of bleeding. Hemoccult stool was positive however. He is on Eliquis 2.5 for up to coagulation for A-fib Physical examination: Gen: This is 79-year-old male in no acute distress VS: reviewed HEENT: Head is atraumatic, normocephalic. Pupils equal, round. Sclerae is anicteric. NECK: Supple. No JVD. LUNGS: Clear to auscultation. No wheezes or rhonchi. No intercostal retractions. HEART: Regular rate and rhythm. No murmur. ABDOMEN: Soft No tenderness. EXTREMITIES: No pedal edema. No calf tenderness. NEUROLOGICAL: Patient is awake, mental status seems somewhat slow and baseline is not known. Assessment: New onset paroxysmal atrial fibrillation with RVR Elevated troponin most likely type II NSTEMI secondary to A-fib with RVR and acute kidney injury Cardiomyopathy with EF 45%, unknown if ischemic or nonischemic, possibly related to tachycardia Acute kidney injury Severe metabolic acidosis secondary to acute kidney injury Severe hypokalemia Hypernatremia Anemia without active bleeding Hypertension, currently hypotensive but improving Plan: Reduce amiodarone to 200 mg daily. From 12/08/2024 reduced to 200 mg daily Add metoprolol succinate 25 mg daily Continue Eliquis 2.5 mg daily Supplement electrolytes. Keep potassium at 4 magnesium at 2. Encourage oral intake Monitor hemoglobin levels, start Protonix 40 p.o. twice daily Obtain iron studies on evaluate for cause for any anemia. Defer to primary team At this time patient is stable from cardiovascular standpoint. Cardiology team will sign off. Please reconsult us in case of any question Objective - Vital Signs Vital signs: Vital Signs Temp 99.3 F 12/01/24 08:55 Pulse 81 12/01/24 08:55 Resp 16 12/01/24 08:55 BP 101/53 12/01/24 08:55 Pulse Ox 97 12/01/24 09:01 FiO2 Intake & Output 11/30/24 12/01/24 12/01/24 18:59 06:59 18:59 Intake Total 340.598 118 Output Total 1300 700 700 Balance -959.402 -700 -582 Intake: Intake, IV Titration 40.598 Amount Heparin Sod,Pork in 0.45% 40.598 NaCl 25,000 unit In 0.45 % NaCl 1 250ml.bag @ 12 UNITS/KG/HR 8.437 mls/hr IV .Q24H [facility] Rx#: [id number] Oral 300 118 Output: Urine 1300 700 700 Other: Voiding Method Indwelling Catheter Indwelling Catheter Indwelling Catheter # Bowel Movements 3 1 1 - Labs CBC & Chem 7: 12/01/24 06:44 12/01/24 06:44 Labs: Abnormal Lab Results - Last 24 Hours (Table) 11/30/24 12/01/24 12/01/24 Range/Units 16:20 06:44 06:44 RBC 2.45 L (4.40-5.60) 10*6/uL Hgb 7.6 L (13.0-17.0) g/dL Hct 22.9 L (39.6-50.0) % Plt Count 87 L (140-440) 10*3/uL Immature Gran # 0.09 H (0.00-0.04) 10*3/uL Lymphocytes # 0.55 L (0.90-5.00) 10*3/uL Eosinophils # 0.03 L (0.04-0.35) 10*3/uL Potassium 2.7 L* (3.5-5.1) mmol/L Chloride 109 H (98-107) mmol/L Carbon Dioxide 19 L (22-30) mmol/L BUN 91 H (9-20) mg/dL Creatinine 2.28 H (0.66-1.25) mg/dL POC Glucose (mg/dL) 126 H (70-110) mg/dL Calcium 7.0 L (8.4-10.2) mg/dL
[2024-12-01 11:27] LABS: Albumin 2.6 g/dL (3.5-5.0)
[2024-12-01 11:34] LABS: Glucose,Whole Blood 119 mg/dL (70-110)
[2024-12-01] MEDS: POTASSIUM CHLORIDE ER 20 MEQ TAB.ER PO STA (12:14)
[2024-12-01] MEDS: METOPROLOL SUCCINATE (ER) 25 MG TAB.ER.24H PO SCH (12:15)
[2024-12-01] MEDS: PANTOPRAZOLE 40 MG TABLET PO SCH (12:15)
--- NOTE | 2024-12-01 13:32 | P.PN ---
Subjective Progress Note Date: 12/01/24 Principal diagnosis: Patient doing well today. Sitting up in chair. Denies any new pain overnight. Is concerned about discharge plan and how he will get home when the time comes. Objective - Vital Signs Vital signs: Vital Signs Temp 99.3 F 12/01/24 08:55 Pulse 81 12/01/24 08:55 Resp 16 12/01/24 08:55 BP 101/53 12/01/24 08:55 Pulse Ox 97 12/01/24 09:01 FiO2 Intake & Output 11/30/24 12/01/24 12/01/24 18:59 06:59 18:59 Intake Total 340.598 118 Output Total 1300 700 700 Balance -959.402 -700 -582 Intake: Intake, IV Titration 40.598 Amount Heparin Sod,Pork in 0.45% 40.598 NaCl 25,000 unit In 0.45 % NaCl 1 250ml.bag @ 12 UNITS/KG/HR 8.437 mls/hr IV .Q24H [facility] Rx#: [id number] Oral 300 118 Output: Urine 1300 700 700 Other: Voiding Method Indwelling Catheter Indwelling Catheter Indwelling Catheter # Bowel Movements 3 1 1 - Exam Vitals Signs Reviewed. General: Nontoxic, no distress, chronically ill-appearing, cachectic, Tapia catheter in place, Sitting up in chair today. Derm: Warm, dry Head: Atraumatic, normocephalic, symmetric Eyes: EOMI, no lid lag, anicteric sclera Mouth: No lip lesion, mucus membranes moist Cardiovascular: S1S2 reg, no murmur Lungs: CTA bilateral, no rhonchi, no rales, no accessory muscle use Abdominal: Soft, nontender to palpation, no guarding, no appreciable organomegaly Ext: No gross muscle atrophy, no edema, no contractures Neuro: CN II-XI grossly intact, no focal neuro deficits Psych: Alert, oriented, appropriate affect - Labs CBC & Chem 7: 12/01/24 06:44 12/01/24 06:44 Labs: Abnormal Lab Results - Last 24 Hours (Table) 11/30/24 12/01/24 12/01/24 Range/Units 16:20 06:44 06:44 RBC 2.45 L (4.40-5.60) 10*6/uL Hgb 7.6 L (13.0-17.0) g/dL Hct 22.9 L (39.6-50.0) % Plt Count 87 L (140-440) 10*3/uL Immature Gran # 0.09 H (0.00-0.04) 10*3/uL Lymphocytes # 0.55 L (0.90-5.00) 10*3/uL Eosinophils # 0.03 L (0.04-0.35) 10*3/uL Potassium 2.7 L* (3.5-5.1) mmol/L Chloride 109 H (98-107) mmol/L Carbon Dioxide 19 L (22-30) mmol/L BUN 91 H (9-20) mg/dL Creatinine 2.28 H (0.66-1.25) mg/dL POC Glucose (mg/dL) 126 H (70-110) mg/dL Calcium 7.0 L (8.4-10.2) mg/dL Albumin (3.5-5.0) g/dL 12/01/24 12/01/24 Range/Units 10:47 11:31 RBC (4.40-5.60) 10*6/uL Hgb (13.0-17.0) g/dL Hct (39.6-50.0) % Plt Count (140-440) 10*3/uL Immature Gran # (0.00-0.04) 10*3/uL Lymphocytes # (0.90-5.00) 10*3/uL Eosinophils # (0.04-0.35) 10*3/uL Potassium (3.5-5.1) mmol/L Chloride (98-107) mmol/L Carbon Dioxide (22-30) mmol/L BUN (9-20) mg/dL Creatinine (0.66-1.25) mg/dL POC Glucose (mg/dL) 119 H (70-110) mg/dL Calcium (8.4-10.2) mg/dL Albumin 2.6 L (3.5-5.0) g/dL Assessment and Plan Assessment: Data Reviewed Today: Pertinent Labs: WBC 4.95, hemoglobin 7.6, platelet 87, sodium 139, potassium 2.7, bicarb 29, creatinine 2.28, BUN 91, magnesium 1.6 Imaging: No new imaging Assessment and Plan: Active: Nonoliguric GRAHAM, ATN secondary to hypovolemia and medication use Hypokalemia Hypomagnesemia (resolved) Metabolic acidosis - Nephrology consulted. Switching to LR 150 cc an hour - Another 10 mill equivalents of IV potassium given today, 1 gm magnesium sulfate - Continue to monitor renal function - Tapia catheter in place for now, will consider discontinuing when patient is m ore ambulatory New onset paroxysmal atrial fibrillation Type II NSTEMI Cardiomyopathy, unknown if ischemic or nonischemic - Cardiology note reviewed, continue amiodarone 400 twice daily - Continue Eliquis 2.5 twice daily Normocytic anemia Thrombocytopenia - Likely in the setting of acute illness as well as renal failure - Iron studies, reticulocyte count ordered - Continue to monitor for any bleeding - Repeat CBC tomorrow Alcohol dependence - Discontinued CIWA po ativan - Continue thiamine 100 mg daily Failure to thrive - On oral supplements - Dietitian following - PT consulted Chronic: COPD/asthma, not in exacerbation History of hypertension, holding antihypertensives DVT ppx: Eliquis Code status: Full code Anticipated discharge place: Pending clinical course Anticipated discharge time: Pending clinical course I have seen and evaluated the patient today. Discussed with the resident and agree with the residents finding and plan as documented in the resident's note. Changes highlighted in blue font.
[2024-12-01 15:36] LABS: Ferritin 1214.0 ng/mL (22.0-322.0); Iron 58.0 UG/DL (65-175); Total Iron Binding Capacity 131.0 UG/DL (228-460)
[2024-12-01 16:36] LABS: Glucose,Whole Blood 134 mg/dL (70-110)
[2024-12-01] MEDS: LACTATED RINGERS 1,000 ML IV SCH (16:41)
[2024-12-01 20:09] LABS: Glucose,Whole Blood 226 mg/dL (70-110)
[2024-12-01] MEDS: AMIODARONE 200 MG TAB PO SCH (21:07)
[2024-12-02 06:12] LABS: Glucose,Whole Blood 124 mg/dL (70-110)
[2024-12-02 08:00] LABS: Basophils # (A) 0.01 10*3/uL (0.00-0.10); Basophils % (A) 0.2 %; Eosinophils # (A) 0.05 10*3/uL (0.04-0.35); Eosinophils % (A) 0.8 %; HCT 25.2 % (39.6-50.0); HGB 8.3 g/dL (13.0-17.0); Lymphocytes # (A) 0.71 10*3/uL (0.90-5.00); Lymphocytes % (A) 11.0 %; MCH 31.8 pg (27.0-32.0); MCHC 32.9 g/dL (32.0-37.0); MCV 96.6 fL (80.0-97.0); Monocytes # (A) 0.51 10*3/uL (0.20-1.00); Monocytes % (A) 7.9 %; Neutrophils # (A) 5.02 10*3/uL (1.80-7.70); Neutrophils % (A) 77.3 %; Platelet Count 104 10*3/uL (140-440); RBC 2.61 10*6/uL (4.40-5.60); RDW 13.0 % (11.5-14.5); WBC 6.48 10*3/uL (4.50-10.00)
[2024-12-02 08:17] LABS: African American GFR (CKD) 37 (>60 ml/min/1.73 sqM); Anion Gap 12 mmol/L; Blood Urea Nitrogen 70 mg/dL (9-20); Calcium 7.8 mg/dL (8.4-10.2); Carbon Dioxide 17 mmol/L (22-30); Chloride 112 mmol/L (98-107); Glucose 109 mg/dL (74-99); Magnesium 1.7 mg/dL (1.6-2.3); Non-African American GFR(CKD) 32 (>60 ml/min/1.73 sqM); Potassium 2.9 mmol/L (3.5-5.1); Sodium 141 mmol/L (137-145)
[2024-12-02 08:24] LABS: INR 1.1 (<1.2); Partial Thromboplastin Time 25.7 sec (22.0-30.0); Prothrombin Time 11.8 sec (10.0-12.5)
[2024-12-02] MEDS: POTASSIUM CHLORIDE 10 MEQ in WATER FOR INJECTION 1 100ML.BAG IVPB SCH (08:38)
[2024-12-02 11:39] LABS: Glucose,Whole Blood 148 mg/dL (70-110)
[2024-12-02] MEDS: MAGNESIUM SULFATE-D5W PMX 1 GM in DEXTROSE/WATER 1 100ML.BAG IVPB SCH (12:45)
[2024-12-02] MEDS: SODIUM BICARBONATE TAB 650 MG TAB PO SCH (12:47)
--- NOTE | 2024-12-02 13:23 | P.PN ---
Subjective Patient is seen for follow-up for acute kidney injury. Renal function continues to improve. Serum creatinine down to 1.9 from 13.2 on initial admission. Currently maintained on IV fluids. Patient has an indwelling Tapia catheter with 24-hour urine output at 1600 mL. Objective - Vital Signs Vital signs: Vital Signs Temp 98.6 F 12/02/24 08:27 Pulse 81 12/02/24 08:27 Resp 14 12/02/24 08:27 BP 104/56 12/02/24 08:27 Pulse Ox 99 12/02/24 08:27 FiO2 Intake & Output 12/01/24 12/02/24 12/02/24 18:59 06:59 18:59 Intake Total 118 Output Total 700 901 Balance -582 -901 Weight 52 kg 62.1 kg Intake: Oral 118 Output: Urine 700 900 Stool 1 Other: Voiding Method Indwelling Catheter Indwelling Catheter Toilet # Voids 2 # Bowel Movements 1 1 - Exam Patient is awake, comfortable, no acute distress Examination of the heart S1 and S2 Examination of the lungs bilateral breath sounds are heard Abdomen is soft nontender Examination lower extremity shows no significant edema HAND WINDER exam grossly intact - Labs CBC & Chem 7: 12/02/24 07:38 12/02/24 07:38 Labs: Abnormal Lab Results - Last 24 Hours (Table) 12/01/24 12/01/24 12/01/24 Range/Units 10:47 10:47 16:34 RBC (4.40-5.60) 10*6/uL Hgb (13.0-17.0) g/dL Hct (39.6-50.0) % Plt Count (140-440) 10*3/uL Immature Gran # (0.00-0.04) 10*3/uL Lymphocytes # (0.90-5.00) 10*3/uL Potassium (3.5-5.1) mmol/L Chloride (98-107) mmol/L Carbon Dioxide (22-30) mmol/L BUN (9-20) mg/dL Creatinine (0.66-1.25) mg/dL Glucose (74-99) mg/dL POC Glucose (mg/dL) 134 H (70-110) mg/dL Calcium (8.4-10.2) mg/dL Iron 58 L (65-175) UG/DL TIBC 131 L (228-460) UG/DL Transferrin 93.5 L 93.4 L (204.0-354.0) mg/dL Ferritin 1214.0 H (22.0-322.0) ng/mL 12/01/24 12/02/24 12/02/24 Range/Units 20:07 06:09 07:38 RBC 2.61 L (4.40-5.60) 10*6/uL Hgb 8.3 L (13.0-17.0) g/dL Hct 25.2 L (39.6-50.0) % Plt Count 104 L (140-440) 10*3/uL Immature Gran # 0.18 H (0.00-0.04) 10*3/uL Lymphocytes # 0.71 L (0.90-5.00) 10*3/uL Potassium (3.5-5.1) mmol/L Chloride (98-107) mmol/L Carbon Dioxide (22-30) mmol/L BUN (9-20) mg/dL Creatinine (0.66-1.25) mg/dL Glucose (74-99) mg/dL POC Glucose (mg/dL) 226 H 124 H (70-110) mg/dL Calcium (8.4-10.2) mg/dL Iron (65-175) UG/DL TIBC (228-460) UG/DL Transferrin (204.0-354.0) mg/dL Ferritin (22.0-322.0) ng/mL 12/02/24 12/02/24 Range/Units 07:38 11:38 RBC (4.40-5.60) 10*6/uL Hgb (13.0-17.0) g/dL Hct (39.6-50.0) % Plt Count (140-440) 10*3/uL Immature Gran # (0.00-0.04) 10*3/uL Lymphocytes # (0.90-5.00) 10*3/uL Potassium 2.9 L (3.5-5.1) mmol/L Chloride 112 H (98-107) mmol/L Carbon Dioxide 17 L (22-30) mmol/L BUN 70 H (9-20) mg/dL Creatinine 1.93 H (0.66-1.25) mg/dL Glucose 109 H (74-99) mg/dL POC Glucose (mg/dL) 148 H (70-110) mg/dL Calcium 7.8 L (8.4-10.2) mg/dL Iron (65-175) UG/DL TIBC (228-460) UG/DL Transferrin (204.0-354.0) mg/dL Ferritin (22.0-322.0) ng/mL Assessment and Plan Assessment: 1. Acute kidney injury secondary to ATN secondary to severe hypovolemia further worsened with the use of NSAIDs, ALEXANDREA inhibitor and diuretic use. Unknown baseline renal function. Creatinine 13.2 on admission and is 1.9 today. Nonoliguric. No hydronephrosis noted on ultrasound. 2. Hypokalemia from poor intake and intracellular shifting from IV bicarb. 3. Metabolic acidosis secondary to acute kidney injury. Status post bicarb drip. 4. Hypernatremia from lack of oral water intake. Better. 5. A-fib with RVR. On oral meds. 6. History of alcohol abuse. 7. Cardiomyopathy with ejection fraction of 45%. Plan: Decrease IV fluids Add oral sodium bicarb Replace potassium May need to switch to IV bicarb if acidosis not improved. Prefer to hold bicarb drip until potassium has been replaced as this will worsen the hypokalemia. Continue to encourage increased oral intake Repeat labs in a.m. Continue to avoid nephrotoxic agents.
--- NOTE | 2024-12-02 14:48 | P.PN ---
Subjective Progress Note Date: 12/02/24 Patient mentions feeling well today. Denies any pain. Able to eat and ambulate to use restroom. Tapia catheter removed. Wants to go home. Objective - Vital Signs Vital signs: Vital Signs Temp 98.6 F 12/02/24 08:27 Pulse 81 12/02/24 08:27 Resp 14 12/02/24 08:27 BP 104/56 12/02/24 08:27 Pulse Ox 99 12/02/24 08:27 FiO2 Intake & Output 12/01/24 12/02/24 12/02/24 18:59 06:59 18:59 Intake Total 118 118 Output Total 700 901 Balance -582 -901 118 Weight 52 kg 62.1 kg Intake: Oral 118 118 Output: Urine 700 900 Stool 1 Other: Voiding Method Indwelling Catheter Indwelling Catheter Toilet # Voids 2 # Bowel Movements 1 1 - Exam Vitals Signs Reviewed. General: Nontoxic, no distress, chronically ill-appearing, cachectic, Tapia catheter removed. Derm: Warm, dry Head: Atraumatic, normocephalic, symmetric Eyes: EOMI, no lid lag, anicteric sclera Mouth: No lip lesion, mucus membranes moist Cardiovascular: S1S2 reg, no murmur Lungs: CTA bilateral, no rhonchi, no rales, no accessory muscle use Abdominal: Soft, nontender to palpation, no guarding, no appreciable organomegaly Ext: No gross muscle atrophy, no edema, no contractures Neuro: CN II-XI grossly intact, no focal neuro deficits Psych: Alert, oriented, appropriate affect - Labs CBC & Chem 7: 12/02/24 07:38 12/02/24 07:38 Labs: Abnormal Lab Results - Last 24 Hours (Table) 12/01/24 12/01/24 12/01/24 Range/Units 10:47 10:47 16:34 RBC (4.40-5.60) 10*6/uL Hgb (13.0-17.0) g/dL Hct (39.6-50.0) % Plt Count (140-440) 10*3/uL Immature Gran # (0.00-0.04) 10*3/uL Lymphocytes # (0.90-5.00) 10*3/uL Potassium (3.5-5.1) mmol/L Chloride (98-107) mmol/L Carbon Dioxide (22-30) mmol/L BUN (9-20) mg/dL Creatinine (0.66-1.25) mg/dL Glucose (74-99) mg/dL POC Glucose (mg/dL) 134 H (70-110) mg/dL Calcium (8.4-10.2) mg/dL Iron 58 L (65-175) UG/DL TIBC 131 L (228-460) UG/DL Transferrin 93.5 L 93.4 L (204.0-354.0) mg/dL Ferritin 1214.0 H (22.0-322.0) ng/mL 12/01/24 12/02/24 12/02/24 Range/Units 20:07 06:09 07:38 RBC 2.61 L (4.40-5.60) 10*6/uL Hgb 8.3 L (13.0-17.0) g/dL Hct 25.2 L (39.6-50.0) % Plt Count 104 L (140-440) 10*3/uL Immature Gran # 0.18 H (0.00-0.04) 10*3/uL Lymphocytes # 0.71 L (0.90-5.00) 10*3/uL Potassium (3.5-5.1) mmol/L Chloride (98-107) mmol/L Carbon Dioxide (22-30) mmol/L BUN (9-20) mg/dL Creatinine (0.66-1.25) mg/dL Glucose (74-99) mg/dL POC Glucose (mg/dL) 226 H 124 H (70-110) mg/dL Calcium (8.4-10.2) mg/dL Iron (65-175) UG/DL TIBC (228-460) UG/DL Transferrin (204.0-354.0) mg/dL Ferritin (22.0-322.0) ng/mL 12/02/24 12/02/24 Range/Units 07:38 11:38 RBC (4.40-5.60) 10*6/uL Hgb (13.0-17.0) g/dL Hct (39.6-50.0) % Plt Count (140-440) 10*3/uL Immature Gran # (0.00-0.04) 10*3/uL Lymphocytes # (0.90-5.00) 10*3/uL Potassium 2.9 L (3.5-5.1) mmol/L Chloride 112 H (98-107) mmol/L Carbon Dioxide 17 L (22-30) mmol/L BUN 70 H (9-20) mg/dL Creatinine 1.93 H (0.66-1.25) mg/dL Glucose 109 H (74-99) mg/dL POC Glucose (mg/dL) 148 H (70-110) mg/dL Calcium 7.8 L (8.4-10.2) mg/dL Iron (65-175) UG/DL TIBC (228-460) UG/DL Transferrin (204.0-354.0) mg/dL Ferritin (22.0-322.0) ng/mL Assessment and Plan Assessment: Data Reviewed Today: Pertinent Labs: WBC 6.48, hemoglobin 8.3, platelet 104, sodium 141, potassium 2.9, bicarb 17, creatinine 1.93, BUN 70, magnesium 1.7, Iron 58, TIBC 131, % Saturation 44.27, Transferrin 93.4, Ferritin 1214.0, reticulocyte count 1.03 Imaging: No new imaging Assessment and Plan: Active: Nonoliguric GRAHAM, ATN secondary to hypovolemia and medication use Hypokalemia Hypomagnesemia (resolved) Metabolic acidosis - Seen by nephrology. Decreasing fluids to 70 mL/hr, added oral sodium bicarb 65 0 mg BID. - Cardiology recommends keeping potassium at 4 and magnesium at 2. - Given 1 gr magnesium sulfate and 60 meq potassium chloride today - Continue to monitor renal function New onset paroxysmal atrial fibrillation Type II NSTEMI Cardiomyopathy, unknown if ischemic or nonischemic - Cardiology note reviewed, Reduced amiodarone dose to 200 twice daily and added metoprolol succinate 25 mg daily - Continue Eliquis 2.5 twice daily Normocytic anemia Thrombocytopenia - Likely in the setting of acute illness as well as renal failure - Continue to monitor for any bleeding - Repeat CBC tomorrow Alcohol dependence - Continue thiamine 100 mg daily Failure to thrive - On oral supplements - Dietitian following - PT consulted Chronic: COPD/asthma, not in exacerbation History of hypertension, holding antihypertensives DVT ppx: Eliquis Code status: Full code Anticipated discharge place: Pending clinical course Anticipated discharge time: Pending clinical course I have seen and evaluated the patient today. Discussed with the resident and agree with the residents finding and plan as documented in the resident's note. Changes highlighted in blue font.
[2024-12-02 16:20] LABS: Glucose,Whole Blood 177 mg/dL (70-110)
[2024-12-02 20:13] LABS: Glucose,Whole Blood 210 mg/dL (70-110)
[2024-12-03 06:08] LABS: Glucose,Whole Blood 113 mg/dL (70-110)
[2024-12-03 07:31] LABS: Basophils # (A) 0.00 10*3/uL (0.00-0.10); Basophils % (A) 0.0 %; Eosinophils # (A) 0.08 10*3/uL (0.04-0.35); Eosinophils % (A) 1.6 %; HCT 24.6 % (39.6-50.0); HGB 8.0 g/dL (13.0-17.0); Lymphocytes # (A) 0.69 10*3/uL (0.90-5.00); Lymphocytes % (A) 13.9 %; MCH 30.3 pg (27.0-32.0); MCHC 32.5 g/dL (32.0-37.0); MCV 93.2 fL (80.0-97.0); Monocytes # (A) 0.42 10*3/uL (0.20-1.00); Monocytes % (A) 8.5 %; Neutrophils # (A) 3.65 10*3/uL (1.80-7.70); Neutrophils % (A) 73.8 %; RBC 2.64 10*6/uL (4.40-5.60); RDW 12.9 % (11.5-14.5); WBC 4.95 10*3/uL (4.50-10.00)
[2024-12-03 07:43] LABS: INR 1.1 (<1.2); Partial Thromboplastin Time 24.7 sec (22.0-30.0); Prothrombin Time 11.7 sec (10.0-12.5)
[2024-12-03 07:54] LABS: African American GFR (CKD) 47 (>60 ml/min/1.73 sqM); Anion Gap 7 mmol/L; Blood Urea Nitrogen 48 mg/dL (9-20); Calcium 7.5 mg/dL (8.4-10.2); Carbon Dioxide 21 mmol/L (22-30); Chloride 115 mmol/L (98-107); Glucose 101 mg/dL (74-99); Magnesium 1.7 mg/dL (1.6-2.3); Non-African American GFR(CKD) 40 (>60 ml/min/1.73 sqM); Potassium 3.0 mmol/L (3.5-5.1); Sodium 143 mmol/L (137-145)
[2024-12-03 09:05] LABS: Platelet Count 99 10*3/uL (140-440); RBC Morphology Normal
[2024-12-03] MEDS: POTASSIUM CHLORIDE ER 20 MEQ TAB.ER PO SCH (09:40)
[2024-12-03 11:30] LABS: Glucose,Whole Blood 129 mg/dL (70-110)
--- NOTE | 2024-12-03 11:48 | P.DS ---
Providers Date of admission: 11/27/24 19:06 Expected date of discharge: 12/03/24 Attending physician: Kelly Quintero MD Consults: 11/27/24 19:05 Consult Physician Routine Consulting Provider: Stanton Diaz Consult Reason/Comments: ARF Do you want consulting provider notified?: Already Contacted Consult Physician Routine Consulting Provider: Kay Crouch Consult Reason/Comments: New a-fib RVR, Do you want consulting provider notified?: Yes Primary care physician: [facility] Course: Discharge Diagnosis: Nonoliguric GRAHAM, ATN secondary to hypovolemia and medication use Hypokalemia Hypomagnesemia (resolved) Metabolic acidosis New onset paroxysmal atrial fibrillation Type II NSTEMI Cardiomyopathy, unknown if ischemic or nonischemic Normocytic anemia Thrombocytopenia Alcohol dependence Failure to thrive Chronic: COPD/asthma, 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 PMHx is vague d/t patients mentation. Pt brought to ED by paramedics who were contacted by the family. On arrival to the ED he was noted to have AFIB with RVR with no prior history. Pt denies fever, N/V, CP, or abdominal pain. He reoprts that he fell and lost consciousness recently but could not say when. He states that since he fell he hasnt been eating or drinking much of anything. On initial evaluation the patient seemed confused and could not tell me exactly why he was there in the ER. Initial labs showed creatinine of 11.85, BUN of 249, bicarb of 9, and anion gap of 32 indicating anion gap metabolic acidosis likely due to uremia. Cardiology and nephrology were consulted. US kidney/bladder was negative for hydronephrosis or nephrolithiasis. Patient also had head CT which was negative for acute intracranial process. However did show nonspecific white matter changes likely secondary to chronic small vessel ischemic disease. Patient also had echocardiogram showing left ventricular ejection fraction estimated at 45%. No wall motion motion abnormalities were noted. The patient was started on a bicarb drip and home antihypertensives were held due to patient's GRAHAM. Patient was also placed on amiodarone drip and heparin drip. Patient was then placed on IV fluids and bicarbonate drip was discontinued. The patient was placed on oral amiodarone instead of the amiodarone drip. Potassium and magnesium were repleted as needed while adm itted. The patient's GRAHAM and metabolic acidosis showed improvement while admitted, and his creatinine dropped to 1.60 and his bicarb dropped to 21 at time of discharge. His altered mental status also also showed improvement and he was able to converse better at time of discharge. Patient seen and examined at bedside. Vital signs reviewed and stable. Physical examination: Vital signs reviewed General: Nontoxic, no distress, chronically ill-appearing, cachectic Derm: Warm, dry Head: Atraumatic, normocephalic, symmetric Eyes: EOMI, no lid lag, anicteric sclera Mouth: No lip lesion, mucus membranes moist Cardiovascular: S1S2 reg, no murmur Lungs: CTA bilateral, no rhonchi, no rales, no accessory muscle use Abdominal: Soft, nontender to palpation, no guarding, no appreciable o rganomegaly Ext: No gross muscle atrophy, no edema, no contractures Neuro: CN II-XI grossly intact, no focal neuro deficits Psych: Alert, oriented, appropriate affect Patient was recommended to follow-up with PCP, cardiology, nephrology and have a BMP repeated in 3 days. Patient was sent home on Eliquis, sodium bicarb tablets, oral amiodarone, oral potassium, metoprolol succinate, and thiamine. Home medications were restarted except for his blood pressure medications because due to GRAHAM. A total of greater than 30 minutes of time were spent preparing this complex discharge summary. Patient was discharged on 12/03/2024 [place] MD PGY-1 TY Dictation was produced using [employer] dictation software. please excuse any grammatical, word or spelling errors. I have seen and evaluated the patient today. Discussed with the resident and agree with the residents finding and plan as documented in the resident's note. Changes highlighted in blue font. Patient Condition at Discharge: Stable Plan - Discharge Summary Discharge Rx Participant: No New Discharge Prescriptions: New Apixaban [Eliquis] 2.5 mg PO BID #90 tab Sodium Bicarbonate Tab 650 mg PO BID #90 tab Amiodarone [Cordarone] 200 mg PO BID #90 tab Potassium Chloride ER [K-Dur 20] 20 meq PO DAILY #90 tab Metoprolol Succinate (ER) [Toprol XL] 25 mg PO DAILY #90 tab Thiamine [Vitamin B-1] 100 mg PO DAILY #90 tab Continue Folic Acid 1 mg PO DAILY Loperamide [Imodium] 2 - 4 mg PO QID PRN PRN Reason: Diarrhea Cholecalciferol (Vitamin D3) [Vitamin D3 (50 Mcg = 2000 Iu)] 50 mcg PO DAILY Mometasone Furoate [Asmanex 220 MCG] 1 puff INHALATION RT-DAILY Latanoprost [Latanoprost 0.005%] 1 drop BOTH EYES HS Eucerin Cream 1 applic TOPICAL DAILY Ipratropium/Albuter 20-100Mcg [Combivent Respimat 20-100Mcg Inhaler] 1 puff INHALATION RT-QID Discontinued Naproxen [Naprosyn] 500 mg PO BID Lisinopril-Hctz 20-25 mg [Zestoretic 20-25] 1 tab PO DAILY amLODIPine [Norvasc] 5 mg PO DAILY Thiamine [Vitamin B-1] 100 mg PO DAILY Discharge Medication List Cholecalciferol (Vitamin D3) [Vitamin D3 (50 Mcg = 2000 Iu)] 50 mcg PO DAILY 11/27/24 [History] Eucerin Cream 1 applic TOPICAL DAILY 11/27/24 [History] Folic Acid 1 mg PO DAILY 11/27/24 [History] Ipratropium/Albuter 20-100Mcg [Combivent Respimat 20-100Mcg Inhaler] 1 puff INHALATION RT-QID 11/27/24 [History] Latanoprost [Latanoprost 0.005%] 1 drop BOTH EYES HS 11/27/24 [History] Loperamide [Imodium] 2 - 4 mg PO QID PRN 11/27/24 [History] Mometasone Furoate [Asmanex 220 MCG] 1 puff INHALATION RT-DAILY 11/27/24 [History] Amiodarone [Cordarone] 200 mg PO BID #90 tab 12/03/24 [Rx] Apixaban [Eliquis] 2.5 mg PO BID #90 tab 12/03/24 [Rx] Metoprolol Succinate (ER) [Toprol XL] 25 mg PO DAILY #90 tab 12/03/24 [Rx] Potassium Chloride ER [K-Dur 20] 20 meq PO DAILY #90 tab 12/03/24 [Rx] Sodium Bicarbonate Tab 650 mg PO BID #90 tab 12/03/24 [Rx] Thiamine [Vitamin B-1] 100 mg PO DAILY #90 tab 12/03/24 [Rx] Follow up Appointment(s)/Referral(s): Arturo Best MD [Medical Doctor] - 1 Week (Patient to make appointment ) Janneth Caro MD [STAFF PHYSICIAN] - 1 Week (Patient to make appointment ) [facility] [Primary Care Provider] - 1-2 days (Patient to make appointment ) Ambulatory/Diagnostic Orders: Basic Metabolic Panel [LAB.AMB] Time Frame: 3 Days, Location: None Selected Magnesium [LAB.AMB] Time Frame: 3 Days, Location: None Selected Patient Instructions/Handouts: Acute Kidney Injury (DC) Activity/Diet/Wound Care/Special Instructions: Please see PCP, cardiology, and nephrology. Discharge Disposition: HOME SELF-CARE
[2024-12-03 11:50] VITALS: BP 106/56; PULSE 61; RESP 14; TEMP 98.2
--- NOTE | 2024-12-03 12:25 | P.PN ---
Subjective Patient is seen for follow-up for acute kidney injury. Renal function continues to improve. Serum creatinine down to 1.6 from 13.2 on initial admission. Currently maintained on IV fluids. Patient has an indwelling Tapia catheter with 24-hour urine output at 1600 mL. Objective - Vital Signs Vital signs: Vital Signs Temp 98.2 F 12/03/24 11:49 Pulse 61 12/03/24 11:49 Resp 14 12/03/24 11:49 BP 106/56 12/03/24 11:49 Pulse Ox 97 12/03/24 11:49 FiO2 Intake & Output 12/02/24 12/03/24 12/03/24 18:59 06:59 18:59 Intake Total 118 540 Output Total 300 600 Balance -182 -600 540 Weight 62.4 kg Intake: Oral 118 540 Output: Urine 300 600 Other: Voiding Method Toilet Toilet Toilet # Voids 2 # Bowel Movements 1 - Exam Patient is awake, comfortable, no acute distress Examination of the heart S1 and S2 Examination of the lungs bilateral breath sounds are heard Abdomen is soft nontender Examination lower extremity shows no significant edema MANAGER STONE exam grossly intact - Labs CBC & Chem 7: 12/03/24 06:50 12/03/24 06:50 Labs: Abnormal Lab Results - Last 24 Hours (Table) 12/02/24 12/02/24 12/03/24 Range/Units 16:19 20:11 06:06 RBC (4.40-5.60) 10*6/uL Hgb (13.0-17.0) g/dL Hct (39.6-50.0) % Plt Count (140-440) 10*3/uL Immature Gran # (0.00-0.04) 10*3/uL Lymphocytes # (0.90-5.00) 10*3/uL Potassium (3.5-5.1) mmol/L Chloride (98-107) mmol/L Carbon Dioxide (22-30) mmol/L BUN (9-20) mg/dL Creatinine (0.66-1.25) mg/dL Glucose (74-99) mg/dL POC Glucose (mg/dL) 177 H 210 H 113 H (70-110) mg/dL Calcium (8.4-10.2) mg/dL 12/03/24 12/03/24 12/03/24 Range/Units 06:50 06:50 11:29 RBC 2.64 L (4.40-5.60) 10*6/uL Hgb 8.0 L (13.0-17.0) g/dL Hct 24.6 L (39.6-50.0) % Plt Count 99 L (140-440) 10*3/uL Immature Gran # 0.11 H (0.00-0.04) 10*3/uL Lymphocytes # 0.69 L (0.90-5.00) 10*3/uL Potassium 3.0 L (3.5-5.1) mmol/L Chloride 115 H (98-107) mmol/L Carbon Dioxide 21 L (22-30) mmol/L BUN 48 H (9-20) mg/dL Creatinine 1.60 H (0.66-1.25) mg/dL Glucose 101 H (74-99) mg/dL POC Glucose (mg/dL) 129 H (70-110) mg/dL Calcium 7.5 L (8.4-10.2) mg/dL Assessment and Plan Assessment: 1. Acute kidney injury secondary to ATN secondary to severe hypovolemia further worsened with the use of NSAIDs, ALEXANDREA inhibitor and diuretic use. Unknown baseline renal function. Creatinine 13.2 on admission and is 1.9 today. Nonoliguric. No hydronephrosis noted on ultrasound. 2. Hypokalemia from poor intake and intracellular shifting from IV bicarb. Currently off of bicarb drip. Potassium remains low and is being supplemented. Patient is maintained on potassium supplementation at home as well. Check random urine potassium to rule out renal potassium wasting. He will benefit from Aldactone as outpatient. 3. Metabolic acidosis secondary to acute kidney injury. Status post bicarb drip. 4. Hypernatremia from lack of oral water intake. Better. 5. A-fib with RVR. On oral meds. 6. History of alcohol abuse. 7. Cardiomyopathy with ejection fraction of 45%. Plan: Continue sodium bicarb Check random urine potassium Replace potassium aggressively along with magnesium Repeat labs in a.m. Continue to avoid nephrotoxic agents.
[2024-12-03] MEDS: MAGNESIUM SULFATE-D5W PMX 1 GM in DEXTROSE/WATER 1 100ML.BAG IVPB SCH (13:21)
[2024-12-03 14:20] VITALS: BMI 18.1
== END 2024-12-03 16:59 | disposition home or self-care (01) | DRG 682 ==
LOC: EC 17:03 → 3SCARD 19:06
PROVIDERS: ADMIT Student in an Organized Health Care Education/Training Program; ATTEND Student in an Organized Health Care Education/Training Program
DX: N17.0 Acute kidney failure with tubular necrosis (principal); G93.41 Metabolic encephalopathy; I21.A1 Myocardial infarction type 2; E46 Unspecified protein-calorie malnutrition; E87.0 Hyperosmolality and hypernatremia; E87.20 Acidosis, unspecified; D69.59 Other secondary thrombocytopenia; E83.51 Hypocalcemia; J44.89 Other specified chronic obstructive pulmonary disease; D64.9 Anemia, unspecified; I10 Essential (primary) hypertension; I42.9 Cardiomyopathy, unspecified; I48.0 Paroxysmal atrial fibrillation; E86.0 Dehydration; E83.42 Hypomagnesemia; E86.1 Hypovolemia; E87.6 Hypokalemia; R62.7 Adult failure to thrive; I95.9 Hypotension, unspecified; Z79.51 Long term (current) use of inhaled steroids; Z79.899 Other long term (current) drug therapy; Z68.20 Body mass index [BMI] 20.0-20.9, adult
CPT/HCPCS: 36415; 70450; 71046; 76770; 80048; 80053; 80306; 80320; 81001; 82040; 82272; 82550; 82728; 83036; 83540; 83550; 83605; 83735; 84100; 84439; 84443; 84466; 84484; 84600; 85025; 85045; 85610; 85730; 87086; 87324; 93005; 93306; 94760; 96361; 96365; 96366; 96368; 99291